=== PATIENT | female | born 1935 | race Caucasian/White ===

== ENCOUNTER 2016-10-10 15:54 | Inpatient (IN) | payer MEDICARE, MEDICAID ==
[~2016-10-10] VITALS: Ht 144.8 cm; Wt 41.2 kg
[~2016-10-10 15:54] MED LIST: CHOL10008 PO; ENAL20TA PO; FERR325C PO; FUR20 PO; HYDR-4003 PO; OMEP20CA11 PO; ONDA8TAB7 PO; POTA10CA42 PO; PROC-4 PO; SPIR50TA2 PO
[2016-10-10 15:59] VITALS: BP 116/84; PULSE 94; RESP 15; O2SAT 94
[2016-10-10] MEDS ORDERED: 0.9% Sodium Chloride 1,000 ML IV ONE ×2 (16:07→17:35)
--- NOTE | 2016-10-10 16:07 | ED.REPORT ---
HPI-General Illness Date of Service Oct 10, 2016 ED Provider: Hermes Rosen MD The patient is an 81 year old female with history of neuroendocrine carcinoma, hypertension, congestive heart failure, and anemia, who was brought to the emergency department by EMS after she had a near syncopal episode that occurred prior to arrival while she was getting a chemotherapy treatment. The episode was witness by her daughter, who states the patient suddenly went limp and was unresponsive. She was grunting and moaning during the episode but was unable to answer questions or respond in anyway. She remained in this state for about 30- 35 minutes. When medics arrived they found the patient to have a low blood pressure. She has had two other episodes since Monday. She has not had any seizure activity during these events. The patient has recently had a few choking episodes due to difficulty swallowing. She has not recently fallen or struck her head. She has not recently been sick. She has chronic abdominal pain from the cancer. She has not complained of shortness of breath, chest pain, vomiting, diarrhea, fever, chills, ear pain or cough. She has been drinking normally but does not eat much. Nursing Notes Stated Complaint: DECREASED LOC Chief Complaint: Neuro Symptoms/ Deficits Nursing Notes Reviewed: Yes Allergies: Coded Allergies: No Known Drug Allergies (Verified Allergy, Mild, 10/10/16) Scheduled Ascorbic Acid (Vitamin C) 1,000 Mg Tab.chew 1,000 MG PO DAILY Cholecalciferol (Vitamin D3) (Vitamin D3) 1,000 Unit Tab.chew 1,000 UNIT PO QAM Enalapril Maleate (Enalapril Maleate) 10 Mg Tablet 10 MG PO QAM Ferrous Sulfate (Iron) 325 Mg Capsule.er 325 MG PO DAILYWM Furosemide (Furosemide) 20 Mg Tab 20 MG PO QAM Potassium Chloride (Potassium Chloride) 10 Meq Capsule.er 10 MEQ PO DAILY TAKE WITH FOOD Spironolactone (Spironolactone) 50 Mg Tablet 50 MG PO BID Scheduled PRN Hydrocodone-Acetaminophen 5-325 mg (Hydrocodone-Acetaminophen 5-325 mg) 1 Each Tablet 0.5-1 TABLET PO TID PRN PRN For Pain Omeprazole (Omeprazole) 20 Mg Capsule.dr 20 MG PO DAILY PRN PRN For Dyspepsia or Heartburn Ondansetron ODT (Zofran ODT) 8 Mg Tablet 8 MG PO q8hrs prn PRN PRN For Nausea Prochlorperazine Maleate (Compazine) 10 Mg Tablet 0.5-1 TABLET PO AC PRN PRN For Nausea General Time Seen by MD: 16:05 Chief Complaint Other (decreased LOC) Hx Obtained From: Patient, Daughter, EMS Arrived By: Ambulance Sudden in Onset?: Yes Onset Occurred: 4 days ago Symptom Duration: Intermittent Severity: Current: No pain currently Severity: Maximum: No pain Recent Healthcare: No recent hospitalization, Recent doctor visit Similar Sx Previous: Yes Past Medical History Past Medical History CHF Hypertension Neuroendocrine carcinoma Anemia Family History Noncontributory Smoking History Never Smoker Social History Lives with her daughter Alcohol Use: Denies alcohol use Drug Use: Denies drug use Other Social History: Good social support, Local resident Ambulatory Status Independent Review of Systems Full Review of Systems Constitutional: Denies: Chills, Fever Ears / Nose / Throat: Denies: Nasal congestion, Sore throat Respiratory: Denies: Non-productive cough, Shortness of breath Cardiovascular: Denies: Chest pain GI: Reports: Abdominal pain (chronic), Anorexia, Dysphagia, Denies: Diarrhea, Vomiting Neurologic: Reports: Change LOC, Syncope, Denies: Seizure, Shaking Complete sys rev & neg: except as marked. Physical Exam Vital Signs Vital Signs Date Time Temp Pulse Resp B/P Pulse Ox O2 Delivery O2 Flow Rate FiO2 10/10/16 15:59 36.5 94 15 116/84 94 Room Air Initial VS: Reviewed Extremities: Vascular intact, Neuro intact Skin: Warm, Dry, No cyanosis Psychiatric: Mood/affect normal, Behavior normal, Normal thought content General/Constitutional: Awake, Alert Appearance / Presentation: Positive: Cachectic (and thin) Head / Eyes: Atraumatic, Normocephalic, PERRL, EOMI ENT: Atraumatic, Airway patent Mouth: Positive: Mucous membranes dry (slightly) Neck: Atraumatic, Supple, No swelling, Non-tender, No midline vertebral tend Respiratory / Chest: Atraumatic, Breath sounds NL, Breath sounds = bilat, No respiratory distress, No rales, No rhonchi, No wheezing, No retractions Cardiovascular: Regular rhythm, Heart sounds NL, No gallop, No murmurs, No rubs Heart Rate / Rhythm: Positive: Tachycardia Abdomen: Atraumatic, Soft, Non-tender, No guarding, No rebound, BS normoactive , No distention, No hernia, No palpable mass, No pulsatile mass Lower Extremity / Pelvis / MS: Neurologic intact, Vascular intact 2+ pitting edema to her bilateral lower extremities that extends up to her knees. Rectum / Perineum: Blood - occult heme -, No gross blood Superficial sacral ulcers present and sacral erythema. There is light brown stool present on rectal exam. Neurologic: Speech NL, No motor deficits, No sensory deficits Speech is fluent. 5/5 strength to both upper and lower extremities. Interpretation & Diagnostics Lab Results Interpretation Result Diagram: 10/10/16 1633 10/10/16 1633 Test 10/10/16 16:33 10/10/16 17:15 White Blood Count 10.4th/mm3 (3.8-10.1) Red Blood Count 3.26mil/mm3 (3.90-5.20) Hemoglobin 9.0g/dL (12.0-15.6) Hematocrit 29.5% (35.0-46.0) Mean Corpuscular Volume 90.5fL (81-100) Mean Corpuscular Hemoglobin 27.6pg (27.0-35.0) Mean Corpuscular Hemoglobin Concent 30.5% (32.0-37.0) Red Cell Distribution Width 18.2% (12.3-15.4) Platelet Count 333bil/L (150-400) Neutrophils (%) (Auto) 85.0% (40-74) Lymphocytes (%) (Auto) 7.1% (14-46) Monocytes (%) (Auto) 6.0% (4-12) Eosinophils (%) (Auto) 0.1% (0-5) Basophils (%) (Auto) 0.2% (0-3) Sodium Level 140mEq/L (134-144) Potassium Level 3.6mEq/L (3.5-5.2) Chloride Level 104mEq/L (97-108) Carbon Dioxide Level 18mmol/L (18-29) Blood Urea Nitrogen 23mg/dL (8-27) Creatinine 1.06mg/dL (0.57-1.00) Estimat Glomerular Filtration Rate 71mL/min (>59) Glucose Level 121mg/dL (60-99) Calcium Level 7.1mg/dL (8.5-10.1) Magnesium Level 1.3mg/dL (1.6-2.6) Total Bilirubin 0.3mg/dL (0.0-1.2) Aspartate Amino Transf (AST/SGOT) 21U/L (0-50) Alanine Aminotransferase (ALT/SGPT) 11U/L (0-32) Alkaline Phosphatase 154U/L (25-165) Total Protein 4.5g/dL (6.4-8.4) Albumin 1.6g/dL (3.4-5.0) Procalcitonin 0.08ng/mL (0.00-0.08) Urine Color Yellow (YELLOW) Urine Appearance Clear (CLEAR,HAZY) Urine pH 5.5 (5.0-8.0) Urine Specific [place] 1.010 (1.003-1.035) Urine Protein Negativemg/dL (NEG,TRACE) Urine Glucose (UA) Negativemg/dL (NEGATIVE) Urine Ketones Negativemg/dL (NEGATIVE) Urine Occult Blood Trace (NEGATIVE) Urine Nitrite Negative (NEGATIVE) Urine Bilirubin Negative (NEGATIVE) Urine Urobilinogen Normalmg/dL (NORMAL) Urine Leukocyte Esterase Negative (NEGATIVE) Urine RBC 0-2/hpf (0-2) Urine WBC 0-5/hpf (0-5) Urine Epithelial Cells Moderate/hpf (NONE-MOD) Urine Crystals Oxalic acid crystals (NONE Urine Bacteria Few/hpf (NONE-FEW) Urine Hyaline Casts 5/20/lpf (NONE) Urine Granular Casts None seen (NONE SEEN) Urine Waxy Casts None seen (NONE SEEN) Urine Red Blood Cell Casts None seen (NONE SEEN) Urine White Blood Cell Casts None seen (NONE SEEN) Urine Mucus Present (None Seen) Urine Trichomonas None seen (NONE SEEN) Urine Yeast None (NONE SEEN) Urinalysis Comment Starch Urine Culture Reflexed Not indicated ECG Interpretation ECG Interpretation: Sinus rhythm with a rate of 78 Anteroseptal Q waves present Time: 17:35 Interpreted by: ED physician X-Ray Chest Interpretation Chest Xray Interpretation: IMPRESSION: 1. New retrocardiac atelectasis, aspiration, or early pneumonia. 2. Bilateral shoulder rotator cuff arthropathy as before. Dictated by: Rc Salcido M.D. on 10/10/2016 at 16:33 Interpretation / Wet Read by: Interpret - Radiologist CT Head Interpretation IMPRESSION: No acute intracranial abnormality. Dictated by: Mary Charles M.D. on 10/10/2016 at 16:49 Study: Head CT no contrast Interpretation / Wet Read by: Interpret - Radiologist Re-Eval/Medical Decision Med Decision/Clinical Course The patient is an 81 year old female with history of neuroendocrine carcinoma, hypertension, congestive heart failure, and anemia, who was brought to the emergency department by EMS after she had a syncopal episode that occurred prior to arrival while she was getting a chemotherapy treatment. The episode was witness by her daughter, who states the patient suddenly went limp and was unresponsive. She was grunting and moaning during the episode but was unable to answer questions or respond in anyway. She remained in this state for about 30- 35 minutes. When medics arrived they found the patient to have a low blood pressure. She has had two other episodes since Monday. She has not had any seizure activity during these events. The patient has recently had a few choking episodes due to difficulty swallowing. She has not recently fallen or struck her head. She has not recently been sick. She has chronic abdominal pain from the cancer. She has not complained of shortness of breath, chest pain, vomiting, diarrhea, fever, chills, ear pain or cough. She has been drinking normally but does not eat much. Here in the emergency department the patient is cachectic and generally unwell- appearing though she is hemodynamically stable and afebrile. She has no active seizure like activity. She is requiring 4 L of supplemental oxygen to maintain saturation in the high 90s. Head CT demonstrates no acute intracranial process or mass lesion. Chest x-ray shows new retrocardiac atelectasis, aspiration, or early pneumonia. 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 No seizure events here in emergency department and I opted to observe as opposed to initiating empiric antiepileptic treatment. I suspect that the patient may have had an aspiration event related to her syncopal episodes as she is requiring supplemental oxygen and has chest x-ray suggestive of aspiration pneumonia. Therefore 2 sets of blood cultures were obtained and she was started on empiric broad-spectrum antibiotics. No evidence of cardiogenic etiology of syncope at this moment the patient remains in sinus rhythm on the monitor. Patient is volume depleted though history not suggestive of orthostatic cause. He is a vagal remains a possibility as well. Spoke with Dr. Costa. He feels that the patient should be on hospice. He would like a CT scan of her chest, abdomen, and pelvis to help with goals of planning for her care. She is not receiving chemo injections but octreotide injections. Also of care discussion was had with patient and family though at this time patient remains a full code. Further discussions will involve patient's oncologist as she clearly has fairly widespread malignancy. Patient was discussed with admitting hospitalist and transferred in stable condition for further workup and management. Source of Hx: Old records, EMS, Family Time of Eval: 17:29 Re-Evaluation/Progress Note: Discussed plan for admission with the patient and her daughter. All questions were addressed. Consultation #1: Referral / Consult Name: Beni Molina MD Consulted With: Ground Operations Superintendent Requested Call at: 17:34 Call Returned at: 17:45 Adhesion Tester: Agrees with eval, Agrees with plan Consultation #2: Referral / Consult Name: Rita Lucio DO Consulted With: Hospitalist Call Returned at: 19:19 Adhesion Tester: Will see patient, Agrees with eval, Agrees with plan, Accepts admit Counseled Regarding: Diagnosis, Lab results, Need for admission Discharge & Departure Primary Impression: Syncopal episodes Syncope type: unspecified Qualified Code: R55 - Syncope and collapse Additional Impressions: Pneumonia Pneumonia type: due to unspecified organism Laterality: unspecified laterality Lung location: unspecified part of lung Qualified Code: J18.9 - Pneumonia, unspecified organism Aspiration pneumonia Aspiration pneumonia type: unspecified Laterality: unspecified laterality Lung location: unspecified part of lung Qualified Code: J69.0 - Pneumonitis due to inhalation of food and vomit Hypoxia Neuroendocrine tumor Disposition: ADMITTED TO HOSPITAL Discharge Condition All VS Reviewed: Yes Condition: Stable Referrals: Pablo David MD (PCP) Crit Care Except Billable Proc Time Spent: 105-134 minutes Services Performed: Patient management by me, Time spent at bedside, Reviewing test results, Reviewing imaging, Discussing patient care, Documentation in record, Time with fam/surrogate Scribe Attestation Portions of this note were transcribed by Ban Salinas. I, Dr. Rosen personally performed the history, physical exam and medical decision-making; I reviewed and confirmed the accuracy of the information in the transcribed note. Signed by: Chuck Jaeger, 10/10/2016 at 1930. copies to: Pablo David MD, Beck O MD Oct 10, 2016 16:07 Ban Salinas Oct 10, 2016 16:41
--- NOTE | 2016-10-10 16:35 | DRSVH ---
PROCEDURE: X-RAY CHEST ONE VIEW, PORTABLE ([id number]) INDICATIONS: 81 year-old female with altered mental status. TECHNIQUE: One view of the chest was acquired. COMPARISON: [facility], CR, XR CHEST 1V PORTABLE, 08/29/2016, 9:37 AM. FINDINGS: Surgical changes and devices: None. Lungs and pleura: No pleural effusions or pneumothorax. There is new patchy retrocardiac opacity. R ight lung remains clear. Mediastinum: Mediastinal contours appear normal. Heart size is normal. There is aortic atheroscler osis. Bones and chest wall: No suspicious bony lesions. As before, there is bilateral superior humeral he ad migration with narrowed acromiohumeral intervals. Overlying soft tissues appear unremarkable. IMPRESSION: 1. New retrocardiac atelectasis, aspiration, or early pneumonia. 2. Bilateral shoulder rotator cuff arthropathy as before. Dictated by: Rc Salcido M.D. on 10/10/2016 at 16:33 Approved by: Rc Salcido M.D. on 10/10/2016 at 16:34
[2016-10-10 16:43] LABS: BASOPHILS % (AUTO) 0.2 % (0-3); EOSINOPHILS % (AUTO) 0.1 % (0-5); Mean Corpuscular Hemoglobin 27.6 pg (27.0-35.0); Mean Corpuscular Volume 90.5 fL (81-100); Platelet Count 333 bil/L (150-400)
--- NOTE | 2016-10-10 16:51 | DRSVH ---
PROCEDURE: CT BRAIN WITHOUT CONTRAST ([id number]) INDICATIONS: ams, seizure? TECHNIQUE: Noncontrast 4.5 mm thick angled axial sections acquired from the foramen magnum to the vertex, with c oronal reformats. COMPARISON: None. FINDINGS: Image quality: Excellent. CSF spaces: Basal cisterns are patent. No extra-axial fluid collections. The ventricles are symmet jyoti in size and shape. Brain: No intracranial bleeds or masses. There is cerebral volume loss for age, with resultant vent ricular and sulcal prominence. There are periventricular and deep white matter chronic small vessel ischemic changes. There is intracranial internal carotid artery atherosclerosis. Skull and face: Calvarium and visualized facial bones appear intact, without suspicious lesions. Sinuses: Sphenoid sinus retention cyst is present. Visualized sinuses and mastoids are otherwise cristy ar. IMPRESSION: No acute intracranial abnormality. Dictated by: Mary Charles M.D. on 10/10/2016 at 16:49 Approved by: Mary Charles M.D. on 10/10/2016 at 16:50
[2016-10-10 17:12] LABS: Magnesium 1.3 mg/dL (1.6-2.6)
[2016-10-10] MEDS ORDERED: Alum-Mag Hydrox-Simeth 30 mL Suspension PO PRN ×2 (17:35→21:15)
[2016-10-10] MEDS ORDERED: Ondansetron 2 mg/mL 2 mL Inj IVPUSH PRN ×2 (17:35→21:15)
[2016-10-10] MEDS ORDERED: Piperacillin-Tazo 3.375 Gm Inj 3.375 GM in Dextrose 5% Minibag Plus 50 ML IV ONE (17:40)
[2016-10-10] MEDS ORDERED: Vancomycin Dose per Pharmacist XX ONE (17:40)
[2016-10-10] MEDS ORDERED: Vancomycin 1 Gm/200 mL NS Premix IV ONE (17:45)
[2016-10-10] MEDS ORDERED: Magnesium Chloride SR 64 mg ER24 Tablet PO ONE (17:45)
[2016-10-10] MEDS ORDERED: ASCO100089 PO (17:53)
[2016-10-10] MEDS ORDERED: ENAL10TA PO (17:53)
[2016-10-10 18:24] LABS: APPEARANCE,URINE CLEAR (CLEAR,HAZY); COLOR,URINE YELLOW (YELLOW); OCCULT BLOOD,URINE TRACE (NEGATIVE); PH,URINE 5.5 (5.0-8.0); UROBILINOGEN,URINE NORMAL (NORMAL)
[2016-10-10] MEDS ORDERED: Magnesium Sulf 2 Gm/50mL Water 1 GM in IV Premix 1 EACH IV ONE (18:40)
[2016-10-10 20:20] VITALS: BP 111/67; PULSE 72; RESP 19; O2SAT 98
--- NOTE | 2016-10-10 20:36 | PCM.HPMED ---
Subjective Date of Service Oct 10, 2016 Primary Provider: Admitting Physician: Rita Lucio DO Primary Care Physician: Pablo David MD Attending Physician: Rita Lucio DO Admit Status: From the Emergency Department Chief Complaint: Syncopal episode; recurrent History of Present Illness: Ms. Cabrera is a pleasant 81 year old cachectic female with an unfortunate history of metastatic well-differentiated neuroendocrine carcinoma and resultant anasarca that presented to [facility] from [facility] following a syncopal and unresponsive episode that followed an injection of octreotide, that lasted approximately 35 minutes according to her daughter that was present throughout the event. Ms. Leiva was admitted for evaluation for her syncopal episodes. Hospital day one. Ms. Leiva and daughter confirm that there have been three syncopal events over the recent 4 days, first occurring Monday, 10/07, following lab draw, lasting approximately 15 minutes, and occurred while the patient was at rest braced with her walker. The second episode occurred Monday, 10/08, and occurred just as the patient was assisted into a seated position into a vehicle , lasting apporx 15 minutes. During these two episodes, the patient slumped over , became unresponsive, and cannot recall details of these events. The third episode occurred day of admission, 10/10, and occurred just as the patient completed octreotide injections at the [facility]. She, again, slumped over, became unresponsive, and this episode lasted approx 35 minutes. It is reported that staff at the [facility] were unable to obtain adequate BP readings. Ms. Cabrera is followed closely by Dr. 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 She states she is much improved in comfort following this procedure. She has also continued and has been compliant with her diuretics. Patient denies any history of seizures, CVA, cardiac conditions including MT and dysrhythmias, history of similar sx, pulmonary conditions, or any existing neurological disorders. Daughter and patient state that they have not considered much thought to goals of care and responses to proceeding with CPR vs DNR/DNI. Chart review indicates that patient does have history of CAD, CHF, and RA not on systemic therapies. No echocardiogram available in [facility]. She admits to chills, decreased appetite, nausea, discomfort with diffuse body swelling, fatigue. weakness, diarrhea x1 month; she denies any cardiac chest pain, shortness of breath, dizziness, vomiting, dysuria, hematuria, constipation , neck pain, abdominal pain. She admits that she does not mobilize much at home , and largely stays confined to a seated position enjoying television programming. She utilizes a walker at baseline, and requires assistance in transfers and activities. In the ED, T36.5, P94, R15, BP 116/84, 94% room air; Initial labs revealed WBC 10.4 with 85 neut, Hb 9.0, Hct 29.5; UA negative for LE, nitrites, and few bacteria. Albumin 1.6, Mg 1.3, LA 4.1, Cr 1.06. Baseline Cr 0.65- approx 1.0, most recently 0.97 10/07. Blood cultures were obtained. Mg replacement provided. Abx given inlcuded vanco and zosyn; 1L NS given. Patient was transferred to [facility] in stable condition, with daughter present. Review of Systems: Complete ROS obtained; pertinent positives and negatives as noted in HPI. Allergies Coded Allergies: No Known Drug Allergies (Verified Allergy, Mild, 10/10/16) Home Medications From ED documentation Scheduled Ascorbic Acid (Vitamin C) 1,000 Mg Tab.chew 1,000 MG PO DAILY Cholecalciferol (Vitamin D3) (Vitamin D3) 1,000 Unit Tab.chew 1,000 UNIT PO QAM Enalapril Maleate (Enalapril Maleate) 10 Mg Tablet 10 MG PO QAM Ferrous Sulfate (Iron) 325 Mg Capsule.er 325 MG PO DAILYWM Furosemide (Furosemide) 20 Mg Tab 20 MG PO QAM Potassium Chloride (Potassium Chloride) 10 Meq Capsule.er 10 MEQ PO DAILY TAKE WITH FOOD Spironolactone (Spironolactone) 50 Mg Tablet 50 MG PO BID Scheduled PRN Hydrocodone-Acetaminophen 5-325 mg (Hydrocodone-Acetaminophen 5-325 mg) 1 Each Tablet 0.5-1 TABLET PO TID PRN PRN For Pain Omeprazole (Omeprazole) 20 Mg Capsule.dr 20 MG PO DAILY PRN PRN For Dyspepsia or Heartburn Ondansetron ODT (Zofran ODT) 8 Mg Tablet 8 MG PO q8hrs prn PRN PRN For Nausea Prochlorperazine Maleate (Compazine) 10 Mg Tablet 0.5-1 TABLET PO AC PRN PRN For Nausea PMH CAD CHF RA Osteoporosis Neuroendocrine carcinoma with mets Surgical History EGD - 04/2015, 03/2016 Colonoscopy- 04/2015, 03/2016 Family History Denies any history of syncopal episodes, similar symptoms, or neurological disorders; Children also reported to be negative for these conditions as well Social History 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; 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 Hx Alcohol Use: No Hx Substance Use: No Hx Tobacco Use: No Smoking Status: Never Smoker Living Arrangement: with Family (daughter) Exam Vital Signs Vital Sign - Last Date Time Temp Pulse Resp B/P Pulse Ox O2 Delivery O2 Flow Rate FiO2 10/10/16 15:59 36.5 94 15 116/84 94 Room Air Exam General: AAOx3, pleasant; frail appearing woman resting in bed curled up HEENT: Atraumatic; temporal wasting; sclera anicteric; EOMI; mucus membranes moist Neck: Full ROM without pain; no palpable nodes Cardiac: Regular rate and rhythm at time of exam, approx 76bpm; no appreciable murmurs Respiratory: Poor inspiratory effort; decreased sounds B/L bases without evidence coarse sounds; no wheeze Abdomen: Soft, nontender, mild anasarca of abd Extremities: Moderate pitting edema of dorsum B/L > proximal LE; no areas skin breakdown evident; no erythema Pulses: Radial equal and bilateral; dorsalis pedis and posterior tibialis difficult to palpate secondary to moderate pitting edema Skin: Warm and dry Neuro: CNII-XII grossly intact; speech without slur; facial expressions symmetric Psych: Appropriate responses to questioning; appears depressed, fatigued; notable avoidance of questioning about code status Lab and Diagnostics Result Diagram: 10/10/16 1633 10/10/16 1633 Assessment & Plan Ms. Cabrera is a pleasant 81 year old cachectic female with an unfortunate history of metastatic well-differentiated neuroendocrine carcinoma and resultant anasarca that presented [facility] a syncopal and unresponsive episode that followed an injection of octreotide that lasted approximately 35 minutes according to her daughter that was present throughout the event. Ms. Leiva was admitted for evaluation for her syncopal episodes. Hospital day one. Syncope, acute, present on admission. Under evaluation - Patient and daughter report 3 episodes occurring different days, follwoing activity, with no previous history - Denies any history of similar or neurological conditions, including seizures; denies h/o cardiac arrhythmias - DDx: Dysrhythmias, vasovagal, electrolyte abnormality, thyroid dysfunction, infection, seizure disorder, CA mets, drugs/Rx, - No recent changes in medications - Recent shift in fluids with recent paracentesis 09/29/2016 - UA negative; WBC 10.4; PCT pending - Received vanco and zosyn in ED; currently appears uninfected, but may not mount appropriate fevers/white count - AM labs + PCT + thyroid function + Mg/PO4 - Tele - Continue zosyn at this time for concerns of aspiration; MRSA swab to eval for status - Orthostatic vitals Elevated lactic acid, likely acute, present on admission. Monitored - On admit: LA 4.1 - Repeat has been ordered, awaiting draw - Repeat q4h until normalized Acute kidney injury, present on admission. Monitored - On admit: Cr 1.06; baseline 0.65-0.97 - Likely secondary to dehydration; patient reports poor po intake; pt also received vanco and zosyn in ED - Holding ACEi, diuretics at time of admission, reassess in am - Home meds: Enalapril 10mg qam, Lasix 20mg qam, spironolactone 50mg BID - NS 60 - AM labs Suspected CXR abnormality, chronicity unknown, present on admission. 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 Ongoing - Patient reports minimal to zero appetite and weight loss with associated fatigue - Dietary consultation Anasarca, chronic. Presumed stable - Patient and daughter report that swelling at time of admission is improved compared to previous days - Likely secondary to low albumin levels; consider transfusion of albumin for fluid mobility and furosemide effectiveness - Dietary improvement Normocytic, normochromic anemia, likely chronic. Presumed stable - On admit: Hb 9.0, Hct 29.5 - Likely secondary to advanced age, h/o carcinoma - Monitor Hypomagnesemia, likely acute, present on admission. Under therapy - On admit: Mg 1.3 - Replacement ordered by ED - AM labs; replete prn Generalized weakness and failure to thrive, chronic. 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 Ongoing - Followed by Dr. Costa of [facility] - Pt was admitted from [facility] to ED for eval of syncope - Consultation order placed for continued follow up - There was discussion of obtaining additional scans, such as CT A/P, to evaluate any potential new masses to assist in determining goals of care, this has NOT YET been placed - Pt creatinine was slightly elevated; no contrast at this time - Will gently hydrate overnight, re-assess in am Goals of care, ongoing - Patient and family state that they have not considered answers to questionings about code status and goals - Chart review indicates that these scenarios have been presented by other providers - POLST briefly explained and provided to patient and daughter to review - Patient has decided on FULL CODE status; risks of rib fracture, bleeding, lung perforation explained and accepted; acknowledged that may not be successful - Patient and family want to 'try' - Palliative care consultation for continued discussion and goals - PRN: Bowel/fever/pain/antiemetics - IVF: NS 60 - DVT: Hep q8 - GI: Not indicated - Code: FULL CODE Patient status: Due to severity of presenting symptoms, expected course of care , and risk of adverse events, anticipated LOS > 2 midnights; admitted as INPT Pain Evaluation: Adequate Pain Control GI Prophylaxis: Not indicated VTE Prophylaxis: Sub-Q Heparin (Unfractionated) Resuscitation Status: CPR: Attempt Resuscitation Attending Statement The patient was seen and examined together with house staff on 10/10/16 and I agree with the history, exam and plan as outlined in the note above. Gavi Mera DO Oct 10, 2016 20:36 Rita Lucio DO Oct 11, 2016 03:39
[2016-10-10 20:51] VITALS: PULSE 73
[2016-10-10] MEDS ORDERED: Polyethylene Glycol (PEG) 17 Gm Powder PO PRN (21:15)
[2016-10-10] MEDS: 0.9% Sodium Chloride 1,000 ML IV SCH (22:45)
--- NOTE | 2016-10-10 23:05 | NUR ---
Admit Patient arrived to floor at 2019 from ED. Patient A&OX3. Peripheral IV intact. Vitals stable. P500 bed. Daughter at bedside. Patient on 3L O2 at 95%. Wearing brief. No complaints of pain, N/V, or dizzyness.
[2016-10-11] VITALS (7 sets, daily range): BP systolic 96–119; BP diastolic 60–70; PULSE 53–75; RESP 16–18; O2SAT 92–96
[2016-10-11] MEDS: Heparin 5,000 Unit/mL Inj SUBQ SCH ×3 (00:35→17:47)
[2016-10-11] MEDS: Piperacillin-Tazo 3.375 Gm Inj 3.375 GM in Dextrose 5% Minibag Plus 50 ML IV SCH ×3 (05:02→21:26)
--- NOTE | 2016-10-11 05:40 | NUR ---
High High catheter placed at 2330 per physician orders. Patient is unstable on feet and has considerable skin breakdown on buttock and rico area. Patient wearing brief. 2L O2 at 96%. Attempted to titrate patient off of O2 but when Oxygen was removed, the patient's O2 saturation dropped down to 88%. Patient A&Ox3. Vitals stable. Bilateral lower extremity edema.
[2016-10-11 06:48] LABS: BASOPHILS % (AUTO) 0.2 % (0-3); EOSINOPHILS % (AUTO) 0.2 % (0-5); MONOCYTES % (AUTO) 7.5 % (4-12); Mean Corpuscular Volume 90.6 fL (81-100); Platelet Count 315 bil/L (150-400)
[2016-10-11 07:15] LABS: Magnesium 1.9 mg/dL (1.6-2.6)
--- NOTE | 2016-10-11 08:47 | DRSVH ---
PROCEDURE: X-RAY CHEST ONE VIEW, PORTABLE ([id number]) INDICATIONS: possible asp PNA TECHNIQUE: One view of the chest was acquired. COMPARISON: [facility], CR, XR CHEST 1V PORTABLE, 08/29/2016, 9:37 AM. [facility], CR, XR CHEST 1VW (PORTABLE), 10/10/2016, 16:16. FINDINGS: Surgical changes and devices: None. Lungs and pleura: The small bilateral effusions. Right basilar opacity compatible with consolidation or atelectasis. No pneumothorax. Mediastinum: Mediastinal contours appear normal. Heart size is normal. Bones and chest wall: No suspicious bony lesions. Overlying soft tissues appear unremarkable. IMPRESSION: Right basilar pneumonia or atelectasis. Small bibasilar pleural effusions. Dictated by: Anabelle Schultz M.D. on 10/11/2016 at 8:45 Approved by: Anabelle Schultz M.D. on 10/11/2016 at 8:46
--- NOTE | 2016-10-11 09:14 | PCM.CONPAL ---
Date of Service Oct 11, 2016 Date of Hospital Admission: Oct 10, 2016 at 18:21 Date of Palliative Consult: Oct 11, 2016 Requesting Provider: Gavi Mera DO Reason Palliative Care Consult: Goals of Care Discussion Reason for Consultation Palliative Care received order from Dr Abraham Mera 10/11/16 to assist with goals of care. Patient is an 81 year old cachectic woman with metastatic neuroendocrine carcinoma and resultant anasarca. [facility] a syncopal and unresponsive episode that followed an injection of octreotide. Patient lives with her daughter. Janis Garrido (daughter) [phone] Hospital Unit @time of consult: Orthopedic/Surgical Care (room 1031) Palliative Care Recommendation Assessment: This is a very frail, cachectic lady with progression of her metastatic neuroendocrine cancer. If she had a cardiac arrest, her ribs would be fractured in the process of the procedure and she would not survive, because people with end stage cancer who undergo resuscitation do not recover after the procedure, they . Palliative Care will advise the pt and family that chest compressions and/or defibrillation would not bring her back to life and should not be attempted. See Plan and Prognosis statements below. Summary of palliative recommendations: Symptom management (Pain/other): currently managed by Attending [facility] Team. Dr. Costa said he asked Attending to set up Abdominal CT for tomorrow, 10/12. Family Conference Team Meeting (FCTM): Palliative Care met today 10/11 with pt and daughter to address their goals and code status per request of Attending Team. Fortuitously, Dr. Costa arrived to join our conversation. Drs. Guzman and Igor counseled pt that she needs to consider hospice. Dr. Costa would like her to have an abdominal CT to see if liver mets have grown and are causing her anasarca or if a there is possibly a blood clot in the liver circulation that is promoting increased anasarca. He feels the CT might give him information about whether to continue trying the octreotide to help pt's anasarca. Today, after many questions, pt and family agree to DNR/DNI code status and agree to consider hospice at home. They have had a hospice intro visit at their home and were undecided at that time, but happy to get information. Pall Care Team has placed a call to Hospice to let them know that the family may be more accepting after today's discussion with Dr. Costa and [facility] Care Team. Prognosis: After examining patient today and reviewing her records, I think she has 2 months or less to live. She is eligible for hospice medicare benefit if she wishes to elect this option. Dr. Costa also believes she is eligible for hospice. Oncologist Dr. Costa's opinion (09/28/16 office visit note): He has been treating her anasarca with lasix, spironolactone and octreotide injections at his office. Although very small-framed, her weight was up to 95 lbs on 10/08/16, (her usual weight is 80lbs). Dr. Costa states she is not a candidate for chemotherapy, and he worries that further diuresis is likely to worsen her renal function. He has recommended hospice to patient and her daughter on . At that time, pt was not ready to accept advise. However, as of 10/11 conversation detailed above, the pt and family are now more accepting of hospice and pt has changed her code status. DPOA/Advanced Directives/POLST: 1. Code status currently is FULL CODE--changed to DNR/DNI after counseling pt and family today, 10/11. 2. POLST conversation deferred today 10/11 as family is overwhelmed by prognosis and pt is "feeling scared" Family/emotional support: excellent support from dtr Janis and Janis's significant other. Janis and her mother have always lived together. Spiritual support: pt said she would appreciate hospital chief data officer visits. [facility] Care Team contacted [employer] and asked for their assistance. Pt expresses fears of leaving her family behind, leaving her two pet dogs behind ( when she dies), and some fears of pain (which has not been a big issue so far in her disease progression). Patient Goals: 1. Pt wants to go home as soon as possible. She not sure if she wants to wait to get the abdominal CT, but Dr. Costa has encouraged this. She is still trying to make up her mind. Problems: Resuscitation Status Resuscitation Status: CPR: Attempt Resuscitation . Advanced Care Planning Address: Code status change, Comfort care Pt History History of Present Illness Ms. Cabrera is a pleasant 81 year old cachectic female with an unfortunate history of metastatic well-differentiated neuroendocrine carcinoma and resultant anasarca that presented to [facility] from [facility] following a syncopal and unresponsive episode that followed an injection of octreotide, that lasted approximately 35 minutes according to her daughter that was present throughout the event. Ms. Leiva was admitted on 10/10 for evaluation for her syncopal episodes. Ms. Leiva and daughter confirm that there have been three syncopal events over the recent 4 days, first occurring Monday, 10/07, following lab draw, lasting approximately 15 minutes, and occurred while the patient was at rest braced with her walker. The second episode occurred Monday, 10/08, and occurred just as the patient was assisted into a seated position into a vehicle , lasting apporx 15 minutes. During these two episodes, the patient slumped over , became unresponsive, and cannot recall details of these events. The third episode occurred day of admission, 10/10, and occurred just as the patient completed octreotide injections at the [facility]. She, again, slumped over, became unresponsive, and this episode lasted approx 35 minutes. It is reported that staff at the [facility] were unable to obtain adequate BP readings. Ms. Cabrera is followed closely by Dr. 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 She states she has been more comfortable since that procedure. She has also continued and has been compliant with her diuretics. Patient denies any history of seizures, CVA, cardiac conditions including WI and dysrhythmias, history of similar sx, pulmonary conditions, or any existing neurological disorders. Daughter and patient state that they have not considered much thought to goals of care and responses to proceeding with CPR vs DNR/DNI. Chart review indicates that patient does have history of CAD, CHF, and RA not on systemic therapies. No echocardiogram available in [facility]. Review of systems: Positive for: chills, decreased appetite, nausea, discomfort with diffuse body swelling, fatigue. weakness, diarrhea x1 month; negative for: cardiac chest pain, shortness of breath, dizziness, vomiting, dysuria, hematuria , constipation, neck pain, abdominal pain. Baseline: she doesn't move around much at home, and usually sits watching TV. She utilizes a walker, and needs assistance in transfers and activities. 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 Lives with daughter , Social History Living Situation: Patient lives with her daughter. Allergy Allergies Reviewed: Yes Medications Current Medications: Current Medications Al Hydrox/Mg Hydrox/Simethicone 30 ml Q6 PRN PO; Start 10/10/16 at 17:35; Stop 10/10/16 at 21:22; Status DC Ondansetron HCl Dose range: 4 mg to 8 mg Q4H PRN IVPUSH; Start 10/10/16 at 17: 35; Stop 10/10/16 at 21:22; Status DC Acetaminophen 975 mg Q6H PRN PO; Start 10/10/16 at 17:35; Stop 10/10/16 at 21: 21; Status DC Heparin Sodium (Porcine) 5,000 unit Q8 SUBQ Last administered on 10/11/16t 08:30 ; Admin Dose 5,000 UNIT; Start 10/11/16 at 00:30 Al Hydrox/Mg Hydrox/Simethicone 30 ml Q6H PRN PO; Start 10/10/16 at 21:15 Ondansetron HCl 4 to 8 mg Q4H PRN IVPUSH; Start 10/10/16 at 21:15 Senna 17.2 mg BID PRN PO; Start 10/10/16 at 21:15 Polyethylene Glycol 17 gm DAILY PRN PO; Start 10/10/16 at 21:15 Acetaminophen 650 mg 650 mg Q4H PRN PO; Start 10/10/16 at 21:15 Sodium Chloride 1,000 ml @ 60 mls/hr [id number] IV Last administered on 10/10/16 22:45; Admin Dose 60 MLS/HR; Start 10/10/16 at 21:40 Piperacillin Sod/ Tazobactam Sod/ Dextrose/Water 50 ml @ 12.5 mls/hr Q8H IV Last administered on 10/11/16t 05:02; Admin Dose 12.5 MLS/HR; Start 10/11/16 at 05:00 Scheduled Ascorbic Acid (Vitamin C) 1,000 Mg Tab.chew 1,000 MG PO DAILY Cholecalciferol (Vitamin D3) (Vitamin D3) 1,000 Unit Tab.chew 1,000 UNIT PO QAM Enalapril Maleate (Enalapril Maleate) 10 Mg Tablet 10 MG PO QAM Ferrous Sulfate (Iron) 325 Mg Capsule.er 325 MG PO DAILYWM Furosemide (Furosemide) 20 Mg Tab 20 MG PO QAM Potassium Chloride (Potassium Chloride) 10 Meq Capsule.er 10 MEQ PO DAILY TAKE WITH FOOD Spironolactone (Spironolactone) 50 Mg Tablet 50 MG PO BID Scheduled PRN Hydrocodone-Acetaminophen 5-325 mg (Hydrocodone-Acetaminophen 5-325 mg) 1 Each Tablet 0.5-1 TABLET PO TID PRN PRN For Pain Omeprazole (Omeprazole) 20 Mg Capsule.dr 20 MG PO DAILY PRN PRN For Dyspepsia or Heartburn Ondansetron ODT (Zofran ODT) 8 Mg Tablet 8 MG PO q8hrs prn PRN PRN For Nausea Prochlorperazine Maleate (Compazine) 10 Mg Tablet 0.5-1 TABLET PO AC PRN PRN For Nausea Objective Findings Exam Vital Sign - Last Date Time Temp Pulse Resp B/P Pulse Ox O2 Delivery O2 Flow Rate FiO2 10/11/16 06:24 36.4 74 18 108/68 96 Nasal Cannula 2.00 Intake and Output 10/10/16 10/10/16 10/11/16 Cumulative From/Thru 15:00 23:00 07:00 10/10/16 15:59 - 10/11/16 06:24 Intake Total 818 ml 818 ml Output Total 350 ml 350 ml Balance 468 ml 468 ml Intake Oral 400 ml 400 ml IV Total 418 ml 418 ml Output Urine Total 350 ml 350 ml # Bowel Movements 0 0 General: Alert/Oriented x3, Person, Place, Time, Situation, No acute distress, Other (cachectic frail appearance) HEENT: Atraumatic, PERRLA, EOMI, Scleral Anicteric, Mucous Membr Moist/[place] Heart: Systolic Murmur (III/IV holosystolic) Lungs: Clear to Percussion, Diminished, Other (frail chest wall, prominent bone structure) Abdomen: Bowel Tones x4, Soft, Non Tender, Distended (slight distension) Neuro: Arousable, Follows Commands, Spontaneous Eye Opening, Speech (intact, no slurring), Weakness (generalized), Other (left eye deviates out laterally ( baseline)) Extremities: Warm, Generalized Edema (pitting in lower extremities and mild edema in abdomen) Skin: Other (no skin breakdown or rashes noted on extremities. RN reports breakdown on buttocks and rico area.) Lab/Diagnostics Item Value Date Time Albumin 1.8 g/dL L 10/11/16629 Total Protein 4.2 g/dL L 10/11/16629 Lactic Acid Level 1.1 mmol/L 10/11/16629 Potassium Level 3.3 mEq/L L 10/11/16629 Creatinine 0.86 mg/dL 10/11/16629 Blood Urea Nitrogen 20 mg/dL 10/11/16629 Time spent Total time 70 minutes; >50% face to face with patient and/or family, providing counselling regarding plans and recommendations, and in care coordination with his/her medical teams. I also spent an additional 60 minutes counseling for advanced care planning with the patient/the patients family/the surrogate decision maker. copies to: Beni Molina MD [facility] CenterSarita MD Oct 11, 2016 09:14
--- NOTE | 2016-10-11 10:33 | NUR ---
Evaluation completed. Please go to "Notes" then click on "Assessments and Notes" (bottom left corner of screen). Then select appropriate discipline tab on top of screen.
--- NOTE | 2016-10-11 11:17 | NUR ---
Palliative Care Palliative Care received order from Dr Abraham Mera 10/11/16 to assist with goals of care. Patient is an 81 year old cachectic woman with metastatic neuroendocrine carcinoma and resultant anasarca. [facility] a syncopal and unresponsive episode that followed an injection of octreotide. Patient lives with her daughter. Janis Garrido (daughter) [phone] Palliative Care to follow. Selina Moreno
--- NOTE | 2016-10-11 13:52 | NUR ---
Evaluation completed. Please go to "Notes" then click on "Assessments and Notes" (bottom left corner of screen). Then select appropriate discipline tab on top of screen.
--- NOTE | 2016-10-11 14:10 | NUR ---
Mobility Pt has denied any pain today, A/O, calm and coop with care. Family here able to meet with Palliative Care. Pt had swallow eval today, but has refused her meals so far. Pt also had PT eval today. Patient required mod-max assist to transfer to edge of bed. Patient stood with FWW and min assist but was unable to fully stand upright. Pt denied any dizziness with all mobility. Family at bedside. Cont to monitor.
--- NOTE | 2016-10-11 14:22 | NUR ---
Palliative care note D/A: Met with pt at length today, as well as her dtr Janis and Janis's male partner (name unknown) and Dr. Guzman. Dr. Costa also part of the discussion and had a very heart to heart with pt regarding her prognosis. Pt and dtr were able to hear and understand that there is no further treatments for pt. He is recommending a CT abdominal and pt is considering it. Pt and her dtr already had a [facility] visit and were awaiting some communication from [facility]. Pt and family had not understood that there was very little more to be done, hence their code decisions. Dr. Costa notes that if cancer is stable, he might consider another injection or two of Octreotide. Pt voices a strong desire to go home and go home as soon as possible. Msg left for HNW (Joyce) to inquire about info visit and current plan. Pt is cared for by her dtr Janis. They have lived together Janis's entire life. 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 Pt had 6 children and all the other children have pre- Janis. Pt indicates that she lost two children separately at aged 6 months, both from cardiac conditions. (They had holes in their hearts.) Pt's face lights up when she discusses her dogs. She has a young 7 mo old named Ramo who is 70 pds and part lab/aki/border collie. She also has an older lab/zee female who weighs 120 lbs who is named Rosenda Reynoso. Dr. Guzman talks to pt about code status and family/pt are happy to change to DNR/DNI after discussion with Dr. Costa. Joyce returns call to indicate that [facility]W was awaiting results of CT scan. Joyce to call this worker back. Family is desirous of hospital bed. Have discussed further the benefits of hospice, including equipment. P: Palliative care to follow. Olya Soni [facility], [facility]
[2016-10-11] MEDS: 0.9% Sodium Chloride 1,000 ML IV SCH (14:24)
--- NOTE | 2016-10-11 15:34 | NUR ---
Social Work-initial assessment: Data: EMR reviewed. Pt is a 81 y/o female who was admitted for syncope per H&P. Pt's insurance is Medicare and [facility] Supplemental. Pt PCP is Pablo David MD. Pt does not have detention care insurance or VA benefits. Pt has no history of HH or SNF. SW met with Pt and explained role. Pt resides at home with her Daughter Janis in [place]. Pt does not drive or use any DME. SW discussed DPOA/advanced directive and patient declined further information. SW placed a call to pt's daughter Lacey confirmed that she provides 24/7 care to pt at home. Pt's [facility] case sealer is Leti Milan, updated clinicals faxed. Pt's daughter is MARY caregiver. PT has seen Pt and cleared Pt for home with 24/7 care and HH. Palliative care is involved at this point in time. Pt may go on hospice. SW to follow-up regarding HH once further information is known. Pt's daughter to provide transport at time of discharge. SW provided phone number and plan on white board in room. SW will continue to follow. Assessment:Pt who is independent at baseline. Plan:Pt to discharge home when medically stable via POV. Palliative care is involved at this point in time. Pt to return home with either hospice or HH. SW will continue to follow. MU Hagen
--- NOTE | 2016-10-11 16:18 | NUR ---
NUTRITION ASSESSMENT: ASSESS: 81 YO female admitted for recurrent syncopal events. Palliative care following and pt has changed her code status today and is planning to discharge soon with either home health or hospice per notes. Pt with minimal appetite and wt loss per notes. PMHx: CAD, CHF, RA, osteoporosis, neuroendocrine carcinoma with mets. LABS: Reviewed. k+ 3.3, Ca 7.1, Alb 1.8 MEDS: Reviewed. GI: No BM reported. CURRENT WT: 41.2 kg. UBW: 38.6 kg (85 lbs) DIET: Dysphagia Mechanical, [place] thick. PO intake 0-25% of meals. EST. NEEDS: 9635-8570 kcals (30-35 kcals/kg UBW), 45-60 g protein (1.2-1.5 g/kg UBW) NUTRITION DIAGNOSIS: 1.) Inadequate oral intake related to decreased appetite as evidenced by po intake of 0-25% of meals. NUTRITION INTERVENTION: 1.) Will add NT ensure to all trays to encourage increased po intake. MONITOR / EVAL: PO intake, labs, nutritional status. Follow per high nutritional risk guidelines.
--- NOTE | 2016-10-11 18:41 | CCS NOTE ---
[facility] [address] [place] [id number] MEDICAL ONCOLOGY OFFICE NOTE PATIENT: KARIN FERNANDEZ : 1935 MR#: [id number] DATE: 10/10/2016 JOB ID: [id number] DATE: 10/11/2016 HISTORY OF PRESENT ILLNESS: The patient is an 81-year-old, frail lady diagnosed with a well-differentiated neuroendocrine/carcinoid tumor, likely originating from small bowel in the mesenteric area with widespread liver metastases on presentation. She is too frail to receive chemotherapy and was diagnosed in late June, early July 2016, and has been started on octreotide injection since the octreotide scan was positive. She received a 2nd higher dose octreotide at 40 mg yesterday at our office. At her last visit in our clinic on September 28, I had recommended also an informational visit with hospice due to the patient's overall decline in functional status and extensive fluid retention and anasarca, which I think either are due to tumor progression versus a malnutrition from hypoalbuminemia or a visceral thrombus. She was supposed to get a CAT scan but that was canceled in my absence last week. She was seen by our nurse practitioner yesterday in the clinic, and she was due for the octreotide injection, but after the shot, had an episode of being unresponsive. As I was in the hospital, my partner saw her in the treatment area and thought that she might have had a partial seizure. The patient was sent to the ER. I have been in communication, both with the ER physician, as well as with the hospitalist team since then, clarifying some of the issues. I did not believe that the patient has had a seizure activity. CT of the brain without contrast was negative expectedly. Chest x-ray had showed a slight infiltrate, possible aspiration. LABORATORIES: Show a white count 8.6, hemoglobin 8.9, platelets 315. Chemistry shows a potassium of 3.3, normal electrolytes. Otherwise albumin is down to 1.8. TSH and free T4 are normal. Procalcitonin is normal. Her lactic acid was elevated, but on the repeat test just a few hours later, was normal. I saw the patient today, with the presence of her daughter and her partner, as well as Dr. Guzman of palliative care. She was awake and in her usual state of function as seen previously in the clinic. Her chromogranin A of October 07 was down to 39 from previously 107. 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 Unfortunately, her status is deteriorating clinically in form of anasarca, hypoalbuminemia, and a couple of episodes of what appears to have been syncopes. So far, the workup during the hospitalization has not revealed any obvious infection. Urinalysis was negative. EKG was apparently without any cardiac arrhythmias. I have spoken both with the ER physician and the admitting hospitalist. In summary, I believe that the patient should be having a CT scan of chest, abdomen, and pelvis to verify whether her disease is progressing on octreotide or has stabilized. I affirmed that if she has evidence of progression, then I would strongly recommend that she transition to hospice. However, if her disease is stable, then we need to debate whether she continues octreotide or not. The CT scan should also help to rule out the visceral thrombus in the differential diagnosis as sometimes portal vein thrombosis can present with subacute worsening of anasarca and ascites. We did arrange for her to get a paracentesis that was done on September 29 with drainage of 3300 cc of fluid which did help her feel somewhat better. I had already requested an informational hospice visit when I saw her a couple of weeks ago which has taken place at home and the patient somehow appears to have misunderstood and said that she is definitely not interested in hospice, and when I inquired today, it turns out that she thought she might have to go to a long-term and her main goal is to remain home. We clarified that issue, that the hospice position does not mean that she will have to go to a long-term. I took the liberty and ordered the CAT scan myself of the chest, abdomen, and pelvis to be performed either later today or tomorrow with contrast. I spoke with Radiology regarding their concern of creatinine issues before, but currently her creatinine clearance is acceptable. In addition, we talked about the resuscitation status, and I recommended that she be DNR, DNI, given her overall outlook and functional status, and the family is all agreeable including the patient. Approximately 1 hour and 5 minutes were spent in counseling and coordination of care.
--- NOTE | 2016-10-11 19:15 | PCM.PNMED ---
Subjective Date of Service Oct 11, 2016 Subjective Pt has no acute complaints. She denies pain or difficulties breathing. Appetite is very small, but she still has some thirst. Met with family, oncology and palliative care today to discuss further planning, she can not recall entire discussion to me, states there is one more CT to do. Exam Vital Signs Vital Sign - Last Date Time Temp Pulse Resp B/P Pulse Ox O2 Delivery O2 Flow Rate FiO2 10/11/16 16:40 Supplement Oxygen 10/11/16 16:02 36.4 68 16 119/68 96 2.00 Intake and Output 10/10/16 10/10/16 10/11/16 Cumulative From/Thru 15:00 23:00 07:00 10/10/16 15:59 - 10/11/16 06:24 Intake Total 818 ml 818 ml Output Total 350 ml 350 ml Balance 468 ml 468 ml Intake Oral 400 ml 400 ml IV Total 418 ml 418 ml Output Urine Total 350 ml 350 ml # Bowel Movements 0 0 General: Alert, Cooperative, No Acute Distress Chest & Lungs: Chest Wall Normal Cardiovascular: Exam Unremarkable Extremities: No cyanosis/clubbing/edma bilat Neurological: Grossly Neurologically Intact IVs and Medications Medications Reviewed: Medications were reviewed in detail Lab and Diagnostics Result Diagram: 10/11/1630 10/11/16 0630 Assessment & Plan Ms. Cabrera is a pleasant 81 year old cachectic female with an unfortunate history of metastatic well-differentiated neuroendocrine carcinoma and resultant anasarca that [facility] to [facility] following a syncopal and unresponsive episode that followed an injection of octreotide that lasted approximately 35 minutes according to her daughter that was present throughout the event. Ms. Leiva was admitted for evaluation for her syncopal episodes. Hospital day one. Metastatic neuroendocrine tumor: - This appears a metastatic process, discussion with both palliative care and oncology today to consider moving in hospice - per oncology will consider one additionall scan to determine prognosis which appear quintinley to be very poor. - Pt has transitioned to DNR/DNI, will consider further comfort measure/hospice according to imaging results. Problem based considerations per below: Syncope, acute, present on admission. Under evaluation - Patient and daughter report 3 episodes occurring different days, follwoing activity, with no previous history - Denies any history of similar or neurological conditions, including seizures; denies h/o cardiac arrhythmias - DDx: Dysrhythmias, vasovagal, electrolyte abnormality, thyroid dysfunction, infection, seizure disorder, CA mets, drugs/Rx, - No recent changes in medications - Recent shift in fluids with recent paracentesis 09/29/2016 - UA negative; WBC 10.4; PCT pending - Received vanco and zosyn in ED; currently appears uninfected, but may not mount appropriate fevers/white count - AM labs + PCT + thyroid function + Mg/PO4 - Orthostatic vitals Elevated lactic acid, likely acute, present on admission. Monitored - On admit: LA 4.1, but normalized soon after. Acute kidney injury, present on admission. Monitored - On admit: Cr 1.06; baseline 0.65-0.97 - Likely secondary to dehydration; patient reports poor po intake; pt also received vanco and zosyn in ED - Holding ACEi, - Home meds: Enalapril 10mg qam, Lasix 20mg qam, spironolactone 50mg BID - NS 60 - AM labs held while planning if pt will be hospice vs active MGMT. will limit blood draws where possible. Suspected CXR abnormality, chronicity unknown, present on admission. 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 Ongoing - Patient reports minimal to zero appetite and weight loss with associated fatigue - Dietary consultation if not hospice approach. Anasarca, chronic. Presumed stable - Patient and daughter report that swelling at time of admission is improved compared to previous days - Likely secondary to low albumin levels; consider transfusion of albumin for fluid mobility and furosemide effectiveness - Dietary improvement Normocytic, normochromic anemia, likely chronic. Presumed stable - On admit: Hb 9.0, Hct 29.5 - Likely secondary to advanced age, h/o carcinoma - Monitor Hypomagnesemia, likely acute, present on admission. Under therapy - On admit: Mg 1.3 Generalized weakness and failure to thrive, chronic. 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 Ongoing - Followed by Dr. Costa of [facility] - Pt was admitted from [facility] to ED for eval of syncope - Consultation order placed for continued follow up - CUrrently CT pending to evaluate spread. - Will gently hydrate overnight, re-assess in am Goals of care, ongoing Palliative care consulted. See above. Patient status: Due to severity of presenting symptoms, expected course of care , and risk of adverse events, anticipated LOS > 2 midnights; admitted as INPT GI Prophylaxis: Not indicated VTE Prophylaxis: Sub-Q Heparin (Unfractionated) VTE Mechanical Devices: Intermittant Pneumatic CD Resuscitation Status: CPR: Attempt Resuscitation Time spent 25 minutes Jase Bahena DO Oct 11, 2016 19:14
--- NOTE | 2016-10-11 20:41 | DRSVH ---
PROCEDURE: CT CHEST, ABDOMEN AND PELVIS [facility] CONTRAST ([id number]) INDICATIONS: metastatic Neuroendorine cancer TECHNIQUE: After the administration of oral and intravenous contrast, 5 mm thick sections acquired from the lung apices to the symphysis. 5 mm coronal and sagittal reformats were performed, with additional 7 mm c oronal MIP reformats through the lungs. For radiation dose reduction, the following was used: autom ated exposure control, adjustment of mA and/or kV according to patient size. COMPARISON: [facility], CT, CT CHEST ABD PELVIS W CON, 06/29/2016, 13:56. [facility], CR, XR CHEST 1VW (PORTABLE), 10/11/2016, 5:36. FINDINGS: Image quality: Excellent. CHEST: Lungs and pleura: No acute airspace opacities other than expected bilateral atelectasis associated w ith new moderate bilateral pleural effusions. There are new bilateral small to moderate pleural effus ions but no pneumothorax or pulmonary nodule is found. Central and peripheral airways appear patent and normal in caliber. Mediastinum: Heart size is normal. No pericardial effusion. No mediastinal or hilar adenopathy by size criteria. Thoracic aorta and central pulmonary arteries are normal in size. Esophagus is pito l in caliber. No hiatal hernia. Chest wall: No axillary or supraclavicular adenopathy by size criteria. Thyroid gland is normal whe re well visualized. ABDOMEN: Solid organs: Liver and spleen are unchanged in size and enhancement, and a single identified hepati c mass lesion at the anterior left medial hepatic segment measuring up to 1.9 cm is not significantly changed considering differences in scan level and measurement angulation. Gallbladder contains a re latively large peripherally radiodense gallstones, measuring up to 2.7 cm but no acute cholecystitis or biliary obstruction is associated. Biliary system is non dilated. Pancreas enhances normally. N o adrenal nodules. Kidneys demonstrate normal size and enhancement, without hydronephrosis. Peritoneum and bowel: Bowel loops demonstrate normal wall thickness and caliber. No free air. Ther e is a large amount of ascites not previously present, and no peritoneal masses are found. There is, however, a left periaortic retroperitoneal mass measuring up to 2.4 cm in maximal transverse dimensi on as was previously the case. This is located at the axial level of the upper third of the left kid latonya. This likely is a gordy mass, and this clinical circumstance, and it appears to encase the renal artery on the left. Nodes and vessels: No new retroperitoneal or mesenteric adenopathy by size criteria. Aorta and infe rior vena cava are normal in size. Miscellaneous: No ventral hernias. PELVIS: Genitourinary: Bladder wall thickness is normal. Miscellaneous: No inguinal hernias or adenopathy. Increasing ascites is seen as was the case within the abdomen, now moderately large in overall quantity. Bones: No suspicious bony lesions. No vertebral body compression fractures. IMPRESSION: The dominant abnormality is a significant interval increase in the amount of ascites, no w large in quantity. There also now are new bilateral moderate pleural effusions. A liver mass and left periaortic adenopathy/retroperitoneal mass has not changed. No new soft tissue lesion is found. Generalized anasarca. Worsening cachexia. Dictated by: Prosper Velazquez M.D. on 10/11/2016 at 20:27 Approved by: Prosper Velazquez M.D. on 10/11/2016 at 20:40
[2016-10-12 00:27] VITALS: PULSE 65
[2016-10-12 00:45] VITALS: BP 145/78; PULSE 63; RESP 18; O2SAT 95
[2016-10-12] MEDS: Heparin 5,000 Unit/mL Inj SUBQ SCH ×3 (00:50→16:56)
--- NOTE | 2016-10-12 03:10 | NUR ---
Activity Pt has not had diarrhea this shift. Mepilex in place on coccyx. Tolerating q2 hour turns in bed. Pt denies pain. High patent, draining smiley urine.
[2016-10-12] MEDS: Piperacillin-Tazo 3.375 Gm Inj 3.375 GM in Dextrose 5% Minibag Plus 50 ML IV SCH ×3 (05:30→21:43)
[2016-10-12 06:23] VITALS: BP 96/62; PULSE 76; RESP 16; O2SAT 92
--- NOTE | 2016-10-12 09:25 | PCM.PALLBR ---
Palliative Care Recommendation Assessment: This is a very frail, cachectic lady with progression of her metastatic neuroendocrine cancer. If she had a cardiac arrest, her ribs would be fractured in the process of the procedure and she would not survive, because people with end stage cancer who undergo resuscitation do not recover after the procedure, they . Palliative Care will advise the pt and family that chest compressions and/or defibrillation would not bring her back to life and should not be attempted. See Plan and Prognosis statements below. Summary of palliative recommendations: Symptom management (Pain/other): currently managed by [facility], Dr. Bahena. 10/12: Discussed CT with Dr. Costa. He thinks CT shows improvement of liver lesions and think s her ascites is due to mesenteric mass compression on her SMV. He plans to meet with pt and her daughter today at 16:30pm to discuss options. ([facility] will not be able to attend this meeting.) 10/11 Family Conference Team Meeting (FCTM): Palliative Care met with pt and daughter to address their goals and code status per request of Attending Team. Fortuitously, Dr. Costa arrived to join our conversation. Drs. Guzman and Igor counseled pt that she needs to consider hospice. Dr. Costa would like her to have an abdominal CT to see if liver mets have grown and are causing her anasarca or if a there is possibly a blood clot in the liver circulation that is promoting increased anasarca. He feels the CT might give him information about whether to continue trying the octreotide to help pt's anasarca. After many questions, pt and family agree to DNR/DNI code status and to consider hospice at home. They have had a hospice intro visit at their home earlier and were undecided at that time. [facility] Care Team contacted Hospice on to let them know that the family may be more accepting after above discussion with Dr. Costa and [facility] Care Team. Prognosis: After examining patient today and reviewing her records, my clinical impression is that she has 2 months or less to live. She is eligible for hospice medicare benefit if she wishes to elect this option. Dr. Costa also believes she is eligible for hospice. Family/emotional support: excellent support from dtserenity Bruce and Janis's significant other. Janis and her mother have always lived together. Spiritual support: pt said she would appreciate hospital backpackers manager visits. Pall Care Team contacted [employer] services and asked for their assistance. Pt expresses fears of leaving her family behind, leaving her two pet dogs behind ( when she dies), and some fears of pain (which has not been a big issue so far in her disease progression). Problems: (1) Palliative care by specialist Status: Acute ICD Code: Z51.5 (2) Advanced care planning/counseling discussion Assessment & Plan: On 10/11, pt and family changed code to DNR/DNI and have been discussing hospice services in pt's home. Status: Acute ICD Code: Z71.89 (3) LAZO (dyspnea on exertion) Status: Acute ICD Code: R06.09 End of Life Preferences DPOA/Advanced Directives/POLST: 1. Code status currently is FULL CODE--changed to DNR/DNI after counseling pt and family today, 10/11. 2. POLST conversation deferred because family overwhelmed by poor prognosis and pt is "feeling scared" Goals of Care 1. Pt wants to go home as soon as possible. 2. She does not want to return to hospital in future. 3. She prefers to at home in her own bed. 4. She wants to spend as much time as possible with family and pets at home. Disposition likely home with home health services or with hospice, depending on options offered by Dr. Costa re: octreotide injections in future. (As hospice can not cover cost for octreotide doses like those used in oncology. They can only cover small SQ doses offered daily in pt's home.) Resuscitation Status Resuscitation Status: DNR/DNI:Do Not Resuscitate/Intubate POLST Updates/Changes Previous POLST?: No Antibiotics: Determine Use or Limitations Total time 35 minutes; >50% face to face with patient and/or family, providing counselling regarding plans and recommendations, and in care coordination with his/her medical teams. Palliative Brief Note Date of Service Oct 12, 2016 . Patient Identification: Ms. Leiva is a pleasant 81 year old cachectic female with an unfortunate history of metastatic well-differentiated neuroendocrine carcinoma and resultant anasarca that presented to [facility] following a syncopal and unresponsive episode that followed an injection of octreotide, that lasted approximately 35 minutes according to her daughter that was present throughout the event. Ms. Leiva was admitted on 10/10 for evaluation for her syncopal episodes. She has had two similar syncopal events since Monday.Ms. Cabrera's cancer has been managed by Dr. Costa since . It is likely carcinoid origin within the small bowel with metastases to liver and mesentery, with associated anasarca , and recently received therapeutic paracentesis 09/29/16 with removal of 3300cc fluid. Hospital Course: Pt decided (with her family) on 10/11 that she prefers to go home and is interested in help from hospice. She also had an abdominal CT 10/[address] Costa. Results are back, and we are awaiting Dr. Costa's decision on what interventions he might offer (monthly octreotide?) to alleviate her ascites. Subjective: Rn reports that pt just tried to get up with PT and while standing , she fainted and was "out" for a few minutes. Her blood pressure afterwards was 89/. Pt reports that she was conscious the whole time, but saw "morales in front of her eyes." She feels better now Exam: General: Alert/Oriented x3, Person, Place, Time, Situation, No acute distress, overall cachectic frail body frame HEENT: bitemplar wasting, head atraumatic, PERRLA, EOMI, Scleral Anicteric, Mucous Membr Moist/[place] Heart: S1, S2, III/ holosystolic murmur RRR Lungs: Clear to Percussion, Diminished, thin chest wall, prominent bone structure Abdomen: Bowel Tones x4, Soft, Non Tender, slightly distended Neuro: Arousable, Follows Commands, Spontaneous Eye Opening, Speech intact, no slurring, generalized weakness, left eye deviates out laterally intermittently ( her baseline), right eyelids droop. Extremities: Warm, Generalized Edema with pitting in lower extremities and mild edema in abdomen Skin: no skin breakdown or rashes on extremities, RN reports breakdown on buttocks and rico area CT CHEST, ABDOMEN AND PELVIS [facility] CONTRAST 10/11: COMPARISON: [facility]: CT CHEST ABD PELVIS W CON, 06/29/2016, and CXR 10/11/2016 CHEST: Lungs and pleura: No acute airspace opacities other than expected bilateral atelectasis associated with new moderate bilateral pleural effusions. There are new bilateral small to moderate pleural effusions but no pneumothorax or pulmonary nodule is found. Central and peripheral airways appear patent and normal in caliber. Mediastinum: Heart size is normal. No pericardial effusion. No mediastinal or hilar adenopathy by size criteria. Thoracic aorta and central pulmonary arteries are normal in size. Esophagus is normal in caliber. No hiatal hernia. Chest wall: No axillary or supraclavicular adenopathy by size criteria. Thyroid gland is normal where well visualized. ABDOMEN: Solid organs: Liver and spleen are unchanged in size and enhancement , and a single identified hepatic mass lesion at the anterior left medial hepatic segment measuring up to 1.9 cm is not significantly changed considering differences in scan level and measurement angulation. Gallbladder contains a relatively large peripherally radiodense gallstones, measuring up to 2.7 cm but no acute cholecystitis or biliary obstruction is associated. Biliary system is non dilated. Pancreas enhances normally. No adrenal nodules. Kidneys demonstrate normal size and enhancement, without hydronephrosis. Peritoneum and bowel: Bowel loops demonstrate normal wall thickness and caliber. No free air. There is a large amount of ascites not previously present, and no peritoneal masses are found. There is, however, a left periaortic retroperitoneal mass measuring up to 2.4 cm in maximal transverse dimension as was previously the case. This is located at the axial level of the upper third of the left kidney. This likely is a gordy mass, and this clinical circumstance, and it appears to encase the renal artery on the left. Nodes and vessels: No new retroperitoneal or mesenteric adenopathy by size criteria. Aorta and inferior vena cava are normal in size. Miscellaneous: No ventral hernias. PELVIS: Genitourinary: Bladder wall thickness is normal. Miscellaneous: No inguinal hernias or adenopathy. Increasing ascites is seen as was the case within the abdomen, now moderately large in overall quantity. Bones: No suspicious bony lesions. No vertebral body compression fractures. IMPRESSION: The dominant abnormality is a significant interval increase in the amount of ascites, now large in quantity. There also now are new bilateral moderate pleural effusions. A liver mass and left periaortic adenopathy/ retroperitoneal mass has not changed. No new soft tissue lesion is found. Generalized anasarca. Worsening cachexia. Dictated by: Prosper Velazquez M.D. on 10/11/2016 at 20:27 Sarita Guzman MD Oct 12, 2016 09:25 Sarita Guzman MD Oct 12, 2016 09:25
--- NOTE | 2016-10-12 10:24 | NUR ---
Wound Care Pressure ulcer protocol order received, pt seen at bedside. Thin 81 yo female admitted to [facility] with hypotension. Patients skin was inspected, patient presents with 2 small unstageable pressure injuries at either side of her coccyx that measure approx 1 cm in diameter each, there is no drainage or sign of infection, these were cleaned with saline and a mepilex dressing was replaced. Patient also presents with a 6 cm L x 4 cm W bruise on the lateral left lower leg, patient is unaware how long she has had it or how she got it. The skin is not open so it does not need a dressing at this time. No other skin issues are noted today. Recommend frequent repositioning and p500 mattress.
[2016-10-12] MEDS: 0.9% Sodium Chloride 1,000 ML IV SCH (10:41)
[2016-10-12 10:55] VITALS: PULSE 59
[2016-10-12 11:16] VITALS: BP 89/64; PULSE 78; RESP 22; O2SAT 91
--- NOTE | 2016-10-12 11:19 | NUR ---
syncope with PT while PT was working with pt, she stood for a few minutes while OPERATIONS BOARDMAN was attempting to get orthostatics, no BP was obtained, then she sat, still no BP. She then began to feeling whoozy, was unarousable after laying flat for about 4-5 minutes, still unable to obtain BP. while working with PT her HR was ST 130s, decreased back down to SR 80s after she was at rest. sats low 90s on 2L
--- NOTE | 2016-10-12 13:25 | PCM.PNMED ---
Subjective Date of Service Oct 12, 2016 Subjective Pt lying in bed at time of my exam, in no acute distress. She denies any discomfort, states she would like to go home. Waiting to talk with oncologist regarding results of CT. but she is aware that there is significant fluids and cancer mass. She seems to understand her prognosis is poor. Family was not present during my visit. Exam Vital Signs Vital Sign - Last Date Time Temp Pulse Resp B/P Pulse Ox O2 Delivery O2 Flow Rate FiO2 10/12/16 11:16 78 22 89/64 91 Nasal Cannula 2.00 10/12/16 06:23 36.8 Intake and Output 10/11/16 10/11/16 10/12/16 Cumulative From/Thru 15:00 23:00 07:00 10/10/16 15:59 - 10/12/16 06:42 Intake Total 621 ml 672 ml 200 ml 2311 ml Output Total 150 ml 500 ml 1000 ml Balance 621 ml 522 ml -300 ml 1311 ml Intake Oral 400 ml 200 ml 1000 ml IV Total 621 ml 272 ml 1311 ml Output Urine Total 150 ml 500 ml 1000 ml # Bowel Movements 2 2 4 Exam General: Alert, Cooperative, No Acute Distress Chest & Lungs: Chest Wall Normal Cardiovascular: Exam Unremarkable Extremities: No cyanosis/clubbing/edema bilaterally Neurological: Grossly Neurologically Intact IVs and Medications Medications Reviewed: Medications were reviewed in detail Lab and Diagnostics Result Diagram: 10/11/1662910/11/16629 Assessment & Plan Ms. Cabrera is a pleasant 81 year old cachectic female with an unfortunate history of metastatic well-differentiated neuroendocrine carcinoma and resultant anasarca that presented to [facility] following a syncopal and unresponsive episode that followed an injection of octreotide that lasted approximately 35 minutes according to her daughter that was present throughout the event. Ms. Leiva was admitted for evaluation for her syncopal episodes. Hospital day one. Metastatic neuroendocrine tumor: - This appears a metastatic process, discussion with both palliative care and oncology today to consider moving in hospice - per oncology will considered one additionally scan to determine prognosis which based on reading seems to be very poor, but will allow him to discuss this with patient and her family personally. - Pt has transitioned to DNR/DNI, will consider further comfort measure/hospice likely in next 1-2 days with DC home. Problem based considerations per below: Syncope, acute, present on admission. Under evaluation - Patient and daughter report 3 episodes occurring different days, following activity, with no previous history - Denies any history of similar or neurological conditions, including seizures; denies h/o cardiac arrhythmias - DDx: Dysrhythmias, vasovagal, electrolyte abnormality, thyroid dysfunction, infection, seizure disorder, CA mets, drugs/Rx, - No recent changes in medications - Recent shift in fluids with recent paracentesis 09/29/2016 - UA negative; WBC 10.4; PCT pending - Received Vanco and Zosyn in ED; currently appears uninfected, but may not mount appropriate fevers/white count - AM labs + PCT + thyroid function + Mg/PO4 - Orthostatic vitals Elevated lactic acid, likely acute, present on admission. Monitored - On admit: LA 4.1, but normalized soon after. Acute kidney injury, present on admission. Monitored - On admit: Cr 1.06; baseline 0.65-0.97 - Likely secondary to dehydration; patient reports poor po intake; pt also received vanco and zosyn in ED - Holding ACEi, - Home meds: Enalapril 10mg qam, Lasix 20mg qam, spironolactone 50mg BID - NS 60 - AM labs held while planning if pt will be hospice vs active MGMT. will limit blood draws where possible. Suspected CXR abnormality, chronicity unknown, present on admission. Monitor - CXR 10/10: Retrocardiac atelectasis, PNA, or aspiration - Patient has poor inspiratory effort - Acapella to open smaller airways - Continuing Zosyn at this time, but anticipating discontinuation with transition to comfort measures. Protein-calorie malnutrition with hypoalbuminemia, BMI 19, chronic. Ongoing - Patient reports minimal to zero appetite and weight loss with associated fatigue - Dietary consultation if not hospice approach. Anasarca, chronic. Presumed stable - Patient and daughter report that swelling at time of admission is improved compared to previous days - Likely secondary to low albumin levels; consider transfusion of albumin for fluid mobility and furosemide effectiveness - Dietary improvement Normocytic, normochromic anemia, likely chronic. Presumed stable - On admit: Hb 9.0, Hct 29.5 - Likely secondary to advanced age, h/o carcinoma - Monitor Hypomagnesemia, likely acute, present on admission. Under therapy - On admit: Mg 1.3 Generalized weakness and failure to thrive, chronic. 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 Ongoing - Followed by Dr. Costa of [facility] - Pt was admitted from [facility] to ED for eval of syncope - Consultation order placed for continued follow up - Currently CT pending to evaluate spread. - Will gently hydrate overnight, re-assess in am Patient status: Due to severity of presenting symptoms, expected course of care , and risk of adverse events, anticipated LOS > 2 midnights; admitted as INPT Pain Evaluation: Adequate Pain Control GI Prophylaxis: Not indicated VTE Prophylaxis: Sub-Q Heparin (Unfractionated) VTE Mechanical Devices: Intermittant Pneumatic CD Resuscitation Status: DNR/DNI:Do Not Resuscitate/Intubate Time spent 30 minutes Jase Bahena DO Oct 12, 2016 13:25 Jase Bahena DO Oct 12, 2016 13:25
--- NOTE | 2016-10-12 13:36 | NUR ---
JESS signed MU Hagen
--- NOTE | 2016-10-12 15:00 | NUR ---
Palliative care note D/A: Met with pt to provide support. She had indicated when PC team met with her on 10/11/16 that she felt scared when considering the fact that that there is really no further effective treatment left for her neuroendocrine tumor. Pt indicates that she met with Chaplain Anuj and found praying with her to be very soothing and comforting. Pt indicates that she feels a bit better today and is trying to approach her road ahead with thinking about what she can do, one day at a time. She expressed anger and frustration with lack of follow through on her initial finding of her tumor, as managed by her past PCP. Said a prayer with pt. Pt continues to find prosper in her pets and would like to have as much time as possible with them and her family. P: Palliative care to follow. Olya MAGALLANES, [facility]
--- NOTE | 2016-10-12 17:03 | NUR ---
spiritual care: pall care referral (late entry) conversational visit--son in law and dtr at bedside. pt reflected on her new diagnosis, uncertainty of condition and coping with this news as well as frail condition that might limit treatment options. pt overwhelmed. spiritual care to follow
--- NOTE | 2016-10-12 18:46 | NUR ---
spiritual care: follow up pt reflected on her hopes, fears and adjustments she anticipates with medical news evolving. Pt shares living space with dtr and man Isauro. she shared some concerns about home atmosphere and coping. 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
[2016-10-12 21:01] VITALS: BP 111/63; PULSE 76; RESP 18; O2SAT 92
--- NOTE | 2016-10-12 21:21 | CCS NOTE ---
[facility] [address] [place] [id number] MEDICAL ONCOLOGY OFFICE NOTE PATIENT: KARIN FERNANDEZ : 1935 MR#: [id number] DATE: 10/10/2016 JOB ID: [id number] DATE: 10/12/2016 The patient is sitting upright and her daughter and the fiance of her daughter are present. She appears more alert and interactive today. She has not had any nausea, vomiting. While lying down with her legs elevated, the swelling in the lower extremity has markedly improved. On exam, her abdomen is somewhat distended. Lungs clear to auscultation. Lower extremities show only trace edema. LABORATORIES: Show albumin of 1.8. Creatinine stable. We have performed now a CT scan of chest, abdomen, and pelvis with contrast yesterday afternoon. I have personally reviewed the images with Dr. Charles of Radiology and compared the images with the previous scan of June. The patient has, compared to the previous scan, much more ascites and incidentally a small pulmonary embolus in the left lower segmental artery of the left lower lobe, age undetermined. The degree of disease burden in the liver has clearly improved compared to the original CT scan. Some of the smaller lesions are no longer visible. Currently, they see essentially only one liver lesion that is 1.9 cm which is a clear improvement. However, the mesenteric mass that was in the left upper abdomen, likely the primary mass arising from the small bowel as carcinoid, is compressing on the superior mesenteric vein causing an open lesion. ASSESSMENT AND PLAN: An 81-year-old, frail lady, admitted for syncopal episode in the setting of metastatic carcinoid tumor to the liver with fairly extensive liver lesion and a mesenteric mass arising from the small bowel. She has had a couple of doses of octreotide on a monthly fashion as the only mild form of therapy she has received since her tumor is octreotide positive on the nuclear medicine test. She has been developing worsening ascites and anasarca in her legs and the poor functional status. She was admitted after a syncopal episode and during physical therapy yesterday had a similar event when she becomes less responsive and fainty. I think the B symptoms are likely orthostatic and hemodynamic rather than any serious cardiac or seizure activity. She spontaneously recovered from that, and we now reviewed the CT scan findings with the family and the family conference. The CT was personally reviewed with Dr. Charles. The report needed to be corrected for several issues including an incidental finding of a PE in the left lower lobe, age undetermined. She has been started on Lovenox anticoagulation. The tumor burden in the liver has actually improved compared to the original scan due to the effect of octreotide. However, this degree of ascites has massively increased and I think the reason for that is the mesenteric mass compressing and occluding the superior mesenteric vein. There is no flow beyond that level in the vein causing passive congestion and ascites as well as lower extremity edema. This might also be the source of thrombotic risk. This was my concern as discordant explanation of her ascites. The management of this is very challenging. We discussed that one option would be consideration of focal radiation to that mass to relieve the compression and occlusion effect of the SMV but that would be relatively toxic as the patient has ascites and radiation to the fluid might cause increased small-bowel exposure, and the patient would have to come in daily for several weeks. This discussion went several rounds back and forth between the patient and family being somewhat hesitant on one end to proceed with aggressive therapy and, on the other hand, would like not to stop treatment. Overall, my feeling is that the impact we can have to the patient's quality of life is rather negative as the radiation toxicity will be concerning, and her performance status and quality of life already is very poor and at age 81 this might not be the best approach for her even though the liver lesions have decreased in size. The family wanted to think about it, and I mentioned to them that I would favor for her to consider hospice. The anticoagulation is reasonable with Lovenox. I do not think that it would make sense to place her on Coumadin since she will likely require another paracentesis soon and it will have to come off of this. TIME SPENT WITH PATIENT: Approximately 1 hour and 10 minutes were spent in counseling and coordination of care.
[2016-10-13] VITALS (7 sets, daily range): BP systolic 67–120; BP diastolic 51–77; PULSE 52–88; RESP 16–20; O2SAT 92–95
[2016-10-13] MEDS: Heparin 5,000 Unit/mL Inj SUBQ SCH ×3 (00:30→17:39)
--- NOTE | 2016-10-13 04:20 | NUR ---
Skin integrity Pt continues to develop reddened areas on back, buttocks and hips unless turned at least every 2 hours, continued with frequent turning through night. Pt is cooperative and assists with turns to best of her ability. Mepilex in place on coccyx for protection. Pt continues to be incontinent with loose stool; aware of sensation and can notify staff for clean up. Hourly rounding ongoing.
[2016-10-13] MEDS: 0.9% Sodium Chloride 1,000 ML IV SCH ×3 (05:48→23:49)
[2016-10-13] MEDS: Piperacillin-Tazo 3.375 Gm Inj 3.375 GM in Dextrose 5% Minibag Plus 50 ML IV SCH ×3 (05:49→23:49)
--- NOTE | 2016-10-13 10:49 | NUR ---
Palliative care note D/A: Case discussed in PC rounds, with radha Cheek as well as with Joyce from [facility]. Note Dr. Costa's note from 10/12/16 evening. He has explained current CT results and does not feel that more octreotide would be of assistance. He has offered some rad trx to attempt to assist with tumor pushing on vein, with the thought that this may help alleviate some of her ascites. However, he also feels that the burden of this treatment, given her age, functional status and disease burden make this a troublesome option and he recommends hospice to the family. The family requested to be able to think about this overnight. Dr. Gannon has left message for pt dtr. Pt RN aware that PC will want to talk to pt/dtr when dtr arrives. This worker to communicate with [facility] regarding decision. P: Palliative care to follow. Olya LOMBARDISW, [facility] Addendum: 10/13/16 at 1458 by LUZMARIA MOORE Palliative care note amendment D/A: Family still not here for visit. Unable to leave message as vm is full. Nrs will call PC provider when family arrives. Phone call from Joyce at [facility] to indicate that she will hold spot for pt for Monday10/17/16. Joyce is aware that [place]/family [place] of [place]. She would like to have pt seen in the morning. PC has not been able to follow up with family regarding decision of rad trx vs hospice. Above [facility] arrangements can be canceled should pt and family decide for rad trx. Phone call to [facility] dcp to discuss. P: Palliative care to follow. Olya MAGALLANES, [facility] Addendum: 10/13/16 at 1544 by LUZMARIA MOORE PC note amendment [facility] D/A: Phone call from Joyce who will save pt spot for Monday10/17/16 with am discharge. Phone call to [facility] to discuss, Met with pt and dtr as well as Dr. Gannon. Family has decided to not undergo rad trx and would like to dc on Hospice. Dr. Gannon notes that pt will need dc on same day as [facility] open. Family would like hosp bed, commode, over the bed table, w/c, O2 and this is communicated to Joyce. Have ask [facility] to please put pt on list for any cancellations as pt is longing to get home. Joyce to order equipment and work with family on this., Pt misses her dogs badly. Dtr will provide visit for pt with her youngest dog who is in the car today. [facility] aware of above. P: Palliative care to follow. Olya MAGALLANES [facility]
--- NOTE | 2016-10-13 14:37 | PCM.PALLBR ---
Palliative Care Recommendation Assessment: This is a very frail, cachectic lady with progression of her metastatic neuroendocrine cancer. If she had a cardiac arrest, her ribs would be fractured in the process of the procedure and she would not survive, because people with end stage cancer who undergo resuscitation do not recover after the procedure, they . Palliative Care has advised the pt and family that chest compressions and/or defibrillation would not bring her back to life and should not be attempted. See Plan and Prognosis statements below. Summary of palliative recommendations: Symptom management (Pain/other): [facility], Dr. Bahena. 10/13: Awaiting family decision regarding proceeding with palliative radiation. I have been unable to contact the patient's daughter and her cell phone voicemail is full and will not accept new messages. Will follow-up with patient and family when they are available at the hospital. Plan on assisting in completion of POLST when family is available. 10/12: Discussed CT with Dr. Costa. He thinks CT shows improvement of liver lesions and think s her ascites is due to mesenteric mass compression on her SMV. He plans to meet with pt and her daughter today at 16:30pm to discuss options. ([facility] will not be able to attend this meeting.) His note of 10/12 reviewed and appreciated. Prognosis: After examining patient and reviewing her records, Dr. Guzman noted that her clinical impression was that she has 2 months or less to live. She is eligible for hospice medicare benefit if she wishes to elect this option. Dr. Costa also believes she is eligible for hospice. Family/emotional support: excellent support from daughter Janis and Janis's significant other. Janis and her mother have always lived together. 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 Pall Care Team contacted [employer] services and asked for their assistance. Pt expresses fears of leaving her family behind, leaving her two pet dogs behind ( when she dies), and some fears of pain (which has not been a big issue so far in her disease progression). Problems: (1) Palliative care by specialist Status: Acute ICD Code: Z51.5 (2) Advanced care planning/counseling discussion Assessment & Plan: On 10/11, pt and family changed code to DNR/DNI and have been discussing hospice services in pt's home. Status: Acute ICD Code: Z71.89 (3) LAZO (dyspnea on exertion) Status: Acute ICD Code: R06.09 End of Life Preferences DPOA/Advanced Directives/POLST: 1. Code status currently DNR/DNI after counseling pt and family 10/12. 2. POLST conversation deferred because family overwhelmed by poor prognosis and pt is "feeling scared" Goals of Care 1. Pt wants to go home as soon as possible. 2. She does not want to return to hospital in future. 3. She prefers to at home in her own bed. 4. She wants to spend as much time as possible with family and pets at home. Disposition likely home with home health services or with hospice, depending on options offered by Dr. Costa re: octreotide injections in future and possible palliative radiation. (As hospice can not cover cost for octreotide doses like those used in oncology. They can only cover small SQ doses offered daily in pt' s home.) Resuscitation Status Resuscitation Status: DNR/DNI:Do Not Resuscitate/Intubate POLST Updates/Changes Previous POLST?: No Antibiotics: Determine Use or Limitations . Advanced Care Planning Address: Comfort care Pain: None Total time 35 minutes; >50% face to face with patient, providing counselling regarding plans and recommendations, and in care coordination with her medical teams. Palliative Brief Note Date of Service Oct 13, 2016 . Returned to reevaluate patient. Prior to visiting, reviewed her updated records in the EMR in detail, and received signout from other palliative provider. I attempted to contact her daughter by phone, but her voicemail is full and could not accept any messages. I have left my cell number with the bedside nurse with request contact me when she arrives. On my arrival, patient is lying comfortably in bed. Awake to answer simple questions appropriately. Denies any pain or dyspnea. On exam, she is an incredibly frail elderly woman in no distress. Vital signs noted. Skin grayish , warm and dry. Head and neck exam without acute findings. Lungs clear anteriorly, heart sounds regular, abdomen soft and without tenderness. Prasanth Gannon MD Oct 13, 2016 14:37
--- NOTE | 2016-10-13 15:38 | PCM.PALLBR ---
Palliative Brief Note Date of Service Oct 13, 2016 . Patient's daughter Janis arrived late afternoon and we spoke- Ms. Soni/ MU also present. Patient and family have decided NOT to pursue palliative XRT and wish to discharge home when possible with hospice support. Discussed needs (equipment, meds, O2, etc.) and plans with patient's daughter. She is comfortable with the plans, though does not want patient taken home before hospice can formally open her care (probably Monday, but sooner if opening appears in hospice's schedule). Discussed with Dr. Bahena by phone. He will help arrange paracentesis before DC for comfort purposes. Will plan on completing new POLST tomorrow, documenting comfort measures, etc. when Janis returns in the mid-afternoon. Additional time spent today- 40 minutes- greater than 50% in direct contact with patient and her daughter, discussing end of life care plans and arrangements. Prasanth Gannon MD Oct 13, 2016 15:38
--- NOTE | 2016-10-13 16:21 | NUR ---
Social Work-Continued Discharge Planning: Data & Assessment: SW met with patient and patient's daughter to discuss discharge planning. Dr. Gannon and PC NICOLÁS Dobson were also present when SW arrived. Patient has decided to discharge home on hospice. Dr. Gannon stated that patient will need to discharge on the day that hospice is able to open. PC SW notified [facility]. [facility] will notify if an open date becomes available before 10/17 which is the current open date. SW will continue to follow and assist patient with discharge planning needs. Plan: Patient will discharge home with [facility]. The estimated hospice open date is 10/17, but patient will discharge prior to 10/17 if there is any cancellations. SW will continue to follow. Fide Colon LMSW, ACM
--- NOTE | 2016-10-13 17:00 | PCM.PNMED ---
Subjective Date of Service Oct 13, 2016 Subjective Patient remains comfortable lying in hospital bed. Following discussion with Dr. Costa based on all available information all parties agree that a movement towards hospice care as an inpatient specimen just at this time. My evaluation patient had no acute complaints or concerns. Denies any pain or discomfort. Exam Vital Signs Vital Sign - Last Date Time Temp Pulse Resp B/P Pulse Ox O2 Delivery O2 Flow Rate FiO2 10/13/16 10:42 87 67/51 10/13/16 10:41 36.3 18 92 Nasal Cannula 2.00 Intake and Output 10/12/16 10/12/16 10/13/16 Cumulative From/Thru 15:00 23:00 07:00 10/10/16 15:59 - 10/13/16 06:31 Intake Total 713 ml 800 ml 1506 ml 5330 ml Output Total 150 ml 475 ml 1625 ml Balance 713 ml 650 ml 1031 ml 3705 ml Intake Oral 800 ml 100 ml 1900 ml IV Total 713 ml 1406 ml 3430 ml Output Urine Total 150 ml 475 ml 1625 ml # Bowel Movements 5 1 10 General: Alert, Cooperative, No Acute Distress, Other (vision is lying comfortably in hospital bed) Neurological: Grossly Neurologically Intact IVs and Medications Medications Reviewed: Medications were reviewed in detail Lab and Diagnostics Result Diagram: 10/11/1630 10/11/1630 Assessment & Plan Ms. Cabrera is a pleasant 81 year old cachectic female with an unfortunate history of metastatic well-differentiated neuroendocrine carcinoma and resultant anasarca that presented to [facility] from [facility] following a syncopal and unresponsive episode that followed an injection of octreotide that lasted approximately 35 minutes according to her daughter that was present throughout the event. Ms. Leiva was admitted for evaluation for her syncopal episodes. Metastatic neuroendocrine tumor: - This appears a metastatic process, discussion with both palliative care and oncology today to consider moving in hospice - per oncology will considered one additionally scan to determine prognosis which based on reading seems to be very poor, but will allowed him to discuss this with patient and her family personally. - Pt has transitioned to DNR/DNI, Family and patient are now interested in a transition to hospice care One as any issue may be to consider a therapeutic paracentesis to remove excessive fluid in peritoneal cavity which may provide added relief of pressure and additional comfort to patient prior to discharge home on hospice care Problem based considerations per below: Syncope, acute, present on admission. Under evaluation - Patient and daughter report 3 episodes occurring different days, following activity, with no previous history - Denies any history of similar or neurological conditions, including seizures; denies h/o cardiac arrhythmias - DDx: Dysrhythmias, vasovagal, electrolyte abnormality, thyroid dysfunction, infection, seizure disorder, CA mets, drugs/Rx, - No recent changes in medications - Recent shift in fluids with recent paracentesis 09/29/2016 - UA negative; WBC 10.4; PCT pending - Received Vanco and Zosyn in ED; currently appears uninfected, but may not mount appropriate fevers/white count - AM labs + PCT + thyroid function + Mg/PO4 - Orthostatic vitals canceled as are daily lab values. This condition will not be worked up further. Elevated lactic acid, likely acute, present on admission. Monitored - On admit: LA 4.1, but normalized soon after. Acute kidney injury, present on admission. Monitored - On admit: Cr 1.06; baseline 0.65-0.97 - Likely secondary to dehydration; patient reports poor po intake; pt also received vanco and zosyn in ED - Holding ACEi, - Home meds: Enalapril 10mg qam, Lasix 20mg qam, spironolactone 50mg BID - NS 60 Further evaluation held as will no longer redoing blood draws Suspected CXR abnormality, chronicity unknown, present on admission. Monitor - CXR 10/10: Retrocardiac atelectasis, PNA, or aspiration - Patient has poor inspiratory effort - Acapella to open smaller airways - Continuing Zosyn at this time, but anticipating discontinuation with transition to comfort measures. Protein-calorie malnutrition with hypoalbuminemia, BMI 19, chronic. Ongoing - Patient reports minimal to zero appetite and weight loss with associated fatigue - Dietary consultation if not hospice approach. Anasarca, chronic. Presumed stable - Patient and daughter report that swelling at time of admission is improved compared to previous days - Likely secondary to low albumin levels; consider transfusion of albumin for fluid mobility and furosemide effectiveness - Dietary improvement - As noted above this is likely a complication of patient's metastatic process, no further intervention aside from possible therapeutic paracentesis prior to discharge on hospice care. Normocytic, normochromic anemia, likely chronic. Presumed stable - On admit: Hb 9.0, Hct 29.5 - Likely secondary to advanced age, h/o carcinoma - No longer Monitoring Hypomagnesemia, likely acute, present on admission. Under therapy - On admit: Mg 1.3 Generalized weakness and failure to thrive, chronic. Ongoing - Likely secondary to Dx carcinoma, and/or electrolyte abnormalities, poor po intake - PT eval - Dietary consult, as noted above - Patient now will eat to comfort/purplish Patient status: Patient is now awaiting establishment of hospice services at home to allow for comfortable transition to hospice care. On hospital we will pursue only comfort measures, only pending intervention may be the consideration of a therapeutic paracentesis prior to discharge. No provide no further blood draws, however will leave antibiotic and IV fluids and place at this time, likely discontinuation tomorrow on further conversation with family and palliative care team. Pain Evaluation: Adequate Pain Control GI Prophylaxis: Not indicated VTE Prophylaxis: Sub-Q Heparin (Unfractionated) VTE Mechanical Devices: Intermittant Pneumatic CD Resuscitation Status: DNR/DNI:Do Not Resuscitate/Intubate Time spent 25 minutes Jase Bahena DO Oct 13, 2016 17:00
--- NOTE | 2016-10-13 19:10 | NUR ---
diarrhea pt has had frequent diarrhea, sometimes watery, perineum and sacrum very red, has Mepilex foam dressing on sacrum, using Camoseptine around rico-rectal area
[2016-10-14] MEDS: Heparin 5,000 Unit/mL Inj SUBQ SCH ×3 (00:08→16:47)
[2016-10-14 00:14] VITALS: BP 118/72; PULSE 62; RESP 16; O2SAT 92
[2016-10-14 03:51] VITALS: PULSE 59
--- NOTE | 2016-10-14 05:36 | NUR ---
Tele/Activity/pain Pt rested most of the shift without s/sx of distress or discomfort. Denies chest pain and shortness of breath. [id number] for comfort. Tele: Sinus gretchen HR 52 per bus monitor. Care ongoing.
[2016-10-14 06:01] VITALS: BP 112/71; PULSE 62; RESP 16; O2SAT 92
[2016-10-14 08:00] VITALS: PULSE 53
[2016-10-14] MEDS: Piperacillin-Tazo 3.375 Gm Inj 3.375 GM in Dextrose 5% Minibag Plus 50 ML IV SCH ×2 (08:39→16:47)
[2016-10-14 11:22] VITALS: BP 112/66; PULSE 69; RESP 15; O2SAT 90
--- NOTE | 2016-10-14 14:20 | PCM.PNMED ---
Subjective Date of Service Oct 14, 2016 Subjective No complaints Exam Vital Signs Vital Sign - Last Date Time Temp Pulse Resp B/P Pulse Ox O2 Delivery O2 Flow Rate FiO2 10/14/16 11:22 36.0 69 15 112/66 90 Nasal Cannula 2.00 Intake and Output 10/13/16 10/13/16 10/14/16 Cumulative From/Thru 15:00 23:00 07:00 10/10/16 15:59 - 10/14/16 06:37 Intake Total 1321 ml 956 ml 7607 ml Output Total 250 ml 650 ml 2525 ml Balance 1071 ml 306 ml 5082 ml Intake Oral 500 ml 300 ml 2700 ml IV Total 821 ml 656 ml 4907 ml Output Urine Total 250 ml 650 ml 2525 ml # Bowel Movements 2 0 12 Exam General: Alert and oriented, no acute distress Heart: Regular Lungs: Clear Abdomen: Soft, non-tender Extremities: Trace pedal edema Lab and Diagnostics Result Diagram: 10/11/1662910/11/16629 Assessment & Plan Ms. Cabrera is a pleasant 81 year old cachectic female with an unfortunate history of metastatic well-differentiated neuroendocrine carcinoma and resultant anasarca that presented [facility] following a syncopal and unresponsive episode that followed an injection of octreotide that lasted approximately 35 minutes according to her daughter that was present throughout the event. Ms. Leiva was admitted for evaluation for her syncopal episodes. Metastatic neuroendocrine tumor: - Palliative care has consulted - Pt has transitioned to DNR/DNI, Family and patient are now interested in a transition to hospice care, first opening for home hospice is Monday - have ordered a therapeutic paracentesis for Monday to remove excessive fluid in peritoneal cavity which may provide added relief of pressure and additional comfort to patient prior to discharge home on hospice care Problem based considerations per below: Syncope, acute, present on admission. Under evaluation - Patient and daughter report 3 episodes occurring different days, following activity, with no previous history - Denies any history of similar or neurological conditions, including seizures; denies h/o cardiac arrhythmias - DDx: Dysrhythmias, vasovagal, electrolyte abnormality, thyroid dysfunction, infection, seizure disorder, CA mets, drugs/Rx, - No recent changes in medications - Recent shift in fluids with recent paracentesis 09/29/2016 - UA negative; WBC 10.4; PCT pending - Received Vanco and Zosyn in ED; currently appears uninfected, but may not mount appropriate fevers/white count - AM labs + PCT + thyroid function + Mg/PO4 - Orthostatic vitals canceled as are daily lab values. This condition will not be worked up further. Elevated lactic acid, likely acute, present on admission. Monitored - On admit: LA 4.1, but normalized soon after. Acute kidney injury, present on admission. Monitored - On admit: Cr 1.06; baseline 0.65-0.97 - Likely secondary to dehydration; patient reports poor po intake; pt also received vanco and zosyn in ED - Holding ACEi, - Home meds: Enalapril 10mg qam, Lasix 20mg qam, spironolactone 50mg BID - NS 60 Further evaluation held as will no longer redoing blood draws Suspected CXR abnormality, chronicity unknown, present on admission. Monitor - CXR 10/10: Retrocardiac atelectasis, PNA, or aspiration - Patient has poor inspiratory effort - Acapella to open smaller airways - Continuing Zosyn at this time, but anticipating discontinuation with transition to comfort measures, await palliative care follow up. Protein-calorie malnutrition with hypoalbuminemia, BMI 19, chronic. Ongoing - Patient reports minimal to zero appetite and weight loss with associated fatigue - Dietary consultation if not hospice approach. Anasarca, chronic. Presumed stable - Patient and daughter report that swelling at time of admission is improved compared to previous days - Likely secondary to low albumin levels; - Dietary improvement - As noted above this is likely a complication of patient's metastatic process, no further intervention aside from possible therapeutic paracentesis prior to discharge on hospice care. Normocytic, normochromic anemia, likely chronic. Presumed stable - On admit: Hb 9.0, Hct 29.5 - Likely secondary to advanced age, h/o carcinoma - No longer Monitoring Hypomagnesemia, likely acute, present on admission. Under therapy - On admit: Mg 1.3 Generalized weakness and failure to thrive, chronic. Ongoing - Likely secondary to Dx carcinoma, and/or electrolyte abnormalities, poor po intake - PT eval - Dietary consult, as noted above - Patient now will eat to comfort/purplish Patient status: Patient is now awaiting establishment of hospice services at home to allow for comfortable transition to hospice care. On hospital we will pursue only comfort measures, only pending intervention may be the consideration of a therapeutic paracentesis prior to discharge. No provide no further blood draws, however will leave antibiotic and IV fluids and place at this time, likely discontinuation tomorrow on further conversation with family and palliative care team. GI Prophylaxis: Not indicated VTE Prophylaxis: Sub-Q Heparin (Unfractionated) VTE Mechanical Devices: Intermittant Pneumatic CD Resuscitation Status: DNR/DNI:Do Not Resuscitate/Intubate Geno White MD Oct 14, 2016 14:20
--- NOTE | 2016-10-14 15:21 | PCM.PALLBR ---
Palliative Care Recommendation Assessment: This is a very frail, cachectic lady with progression of her metastatic neuroendocrine cancer. If she had a cardiac arrest, her ribs would be fractured in the process of the procedure and she would not survive, because people with end stage cancer who undergo resuscitation do not recover after the procedure, they . Palliative Care has advised the pt and family that chest compressions and/or defibrillation would not bring her back to life and should not be attempted. See Plan and Prognosis statements below. Summary of palliative recommendations: Symptom management (Pain/other): [facility] Dr[facility] Bahena. Goals: Established. Patient and family have decided NOT to pursue palliative XRT and wish to discharge home when possible with hospice support. Dr. Gannon and Dr. 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 (Probably Monday, but sooner if opening appears in hospice's schedule). Dr. Guzman completed POLST with patient on 10/14 as Daughter Janis had not yet arrived by 15:30pm. Original on paper chart and 3 copies tucked into D/C folder , to be picked up by daughter and hospice. Prognosis: After examining patient and reviewing her records, Dr. Guzman noted that her clinical impression was that she has 2 months or less to live. She is eligible for hospice medicare benefit if she wishes to elect this option. Dr. Costa also believes she is eligible for hospice. Family/emotional support: excellent support from daughter Janis and Janis's significant other. Janis and her mother have always lived together. Spiritual support: pt said she would appreciate hospital land resource specialist visits. Pall Care Team contacted Paediatric Surgeon services and asked for their assistance. Pt expresses fears of leaving her family behind, leaving her two pet dogs behind ( when she dies), and some fears of pain (which has not been a big issue so far in her disease progression). Palliative Care Team will now sign off Mrs. Leiva's case as her goals are clear, we have no symptoms to manage, and she is awaiting disposition to hospice on monOctober 17. Thank you for consult. Problems: (1) Palliative care by specialist Status: Acute ICD Code: Z51.5 (2) Advanced care planning/counseling discussion Assessment & Plan: On 10/11, pt and family changed code to DNR/DNI and have been discussing hospice services in pt's home. Status: Acute ICD Code: Z71.89 (3) LAZO (dyspnea on exertion) Status: Acute ICD Code: R06.09 End of Life Preferences DPOA/Advanced Directives/POLST: 1. Code status currently DNR/DNI after counseling pt and family 10/12. 2. POLST conversation deferred because family overwhelmed by poor prognosis and pt is "feeling scared" Goals of Care 1. Pt wants to go home as soon as possible. 2. She does not want to return to hospital in future. 3. She prefers to at home in her own bed. 4. She wants to spend as much time as possible with family and pets at home. Disposition likely home with home health services or with hospice, depending on options offered by Dr. Costa re: octreotide injections in future and possible palliative radiation. (As hospice can not cover cost for octreotide doses like those used in oncology. They can only cover small SQ doses offered daily in pt' s home.) Resuscitation Status Resuscitation Status: DNR/DNI:Do Not Resuscitate/Intubate POLST Updates/Changes Previous POLST?: No Antibiotics: Determine Use or Limitations Total time 35 minutes; >50% face to face with patient and/or family, providing counselling regarding plans and recommendations, and in care coordination with his/her medical teams. Sarita Guzman MD Oct 14, 2016 15:21
--- NOTE | 2016-10-14 15:38 | NUR ---
Palliative care note D/A: Phone call from Joyce at [facility] to indicate that agency will open pt on Monday10/17/16. They would like pt to be at home by 1100 and therefore she will need an early dc as she lives close to [place]. Msg left for [employer]A OPERATOR in regards to above and have also left a message for Joyce that this worker is aware of the need for pt to be dc'ed early on 10/17/16. P: Palliative care to follow as needed. Olya MAGALLANES, CCM
--- NOTE | 2016-10-14 15:49 | NUR ---
spiritual care: follow up pt reflective about change in status, specifics about hospice care and new limitations to her life. matter of fact manner as she described her thoughts about coming to the end of her life after a lifetime of activity, caring for others etc. prayer
--- NOTE | 2016-10-14 19:13 | NUR ---
Mentation Patient alert and oriented this shift, denies pain, nausea or other difficulties. Patient turned Q2 to patient preference. Care is ongoing.
--- NOTE | 2016-10-14 19:17 | NUR ---
Social Work: Continued Discharge Planning Data & Assessment: SW called [facility] and spoke with Joyce to confirm that patient would still open with [facility] on 10/17/16. Joyce confirmed that patient would open with [facility] on 10/17/16. SW notified Joyce that the patient is still available to open on an earlier date if on becomes available. Joyce stated that patient will need an early dc on 10/17/16 because they paln to open with the patient at the home in the a.m. SW will pass the message in report. SW will continue to follow and assist patient with discharge planning. Plan: Patient will discharge home with [facility] on 10/17/16. SW will continue to follow. Fide Colon LMSW, LILIAN
[2016-10-14 20:00] VITALS: BP 122/82; PULSE 81; RESP 16; O2SAT 95
[2016-10-15] MEDS: Piperacillin-Tazo 3.375 Gm Inj 3.375 GM in Dextrose 5% Minibag Plus 50 ML IV SCH ×3 (00:51→16:18)
[2016-10-15] MEDS: Heparin 5,000 Unit/mL Inj SUBQ SCH ×3 (00:51→16:18)
--- NOTE | 2016-10-15 05:44 | NUR ---
Uneventful night Pt denies pain all shift, turned q 2hrs, A&O x3.
[2016-10-15 05:50] VITALS: BP 104/69; PULSE 75; RESP 18; O2SAT 93
[2016-10-15 14:07] VITALS: BP 126/81; PULSE 79; RESP 16; O2SAT 94
--- NOTE | 2016-10-15 14:50 | NUR ---
Social Work: Readiness for Discharge D: EMR reviewed; pt is on day 5 of stay and is awaiting discharge home with hospice to open on Monday. INDUSTRIAL FURNACE FABRICATOR spoke with pt's daughter, Janis, to confirm discharge plan. She agrees with the plan for the pt to come home and states that the pt's DME (hospital bed, oxygen and bedside table) were delivered yesterday. INDUSTRIAL FURNACE FABRICATOR reviewed pt's chart and spoke with bedside RN. Pt is unable to maintain upright seated position and has been on bedrest except with PT. INDUSTRIAL FURNACE FABRICATOR explained that pt is able to transport BLS but cannot guarantee that Medicare/Medicaid will cover this cost. Pt's daughter understands that the pt could receive a bill for this and feels it is the safest method of transportation. t/c to [facility]; transportation arranged for Monday October 17, 2016 at 1000. A: Pt who is on comfort care. P: Anticipate pt to discharge home on Tuesday 10/17 via BLS ([facility] pickup at 10:00am) with hospice to open at 12:00pm at the pt's home. MU Rivas
--- NOTE | 2016-10-15 16:01 | PCM.PNMED ---
Subjective Date of Service Oct 15, 2016 Subjective No complaints, denies pain, not feeling that abdomen is overly distended or uncomfortable. Exam Vital Signs Vital Sign - Last Date Time Temp Pulse Resp B/P Pulse Ox O2 Delivery O2 Flow Rate FiO2 10/15/16 14:07 36.3 79 16 126/81 94 Nasal Cannula 2.00 Intake and Output 10/14/16 10/14/16 10/15/16 Cumulative From/Thru 15:00 23:00 07:00 10/10/16 15:59 - 10/14/16 19:29 Intake Total 714 ml 8321 ml Output Total 200 ml 2725 ml Balance 514 ml 5596 ml Intake Oral 100 ml 2800 ml IV Total 614 ml 5521 ml Output Urine Total 200 ml 2725 ml # Bowel Movements 12 Exam General: Alert and oriented, no acute distress Heart: Regular Lungs: Clear anteriorly and laterally Abdomen: Somewhat protuberant but Soft, non-tender, active bowel tones Extremities: Trace to 1+ pedal edema IVs and Medications Medications Reviewed: Medications were reviewed in detail Lab and Diagnostics Result Diagram: 10/11/1662910/11/1630 Assessment & Plan Ms. Cabrera is a pleasant 81 year old cachectic female with an unfortunate history of metastatic well-differentiated neuroendocrine carcinoma and resultant anasarca that presented [facility] following a syncopal and unresponsive episode that followed an injection of octreotide that lasted approximately 35 minutes according to her daughter that was present throughout the event. Ms. Leiva was admitted for evaluation for her syncopal episodes. Metastatic neuroendocrine tumor: - Palliative care has consulted - Pt has transitioned to DNR/DNI, Family and patient are now interested in a transition to hospice care, first opening for home hospice is Monday - have ordered a therapeutic paracentesis for Monday to remove excessive fluid in peritoneal cavity which may provide added relief of pressure and additional comfort to patient prior to discharge home on hospice care - However patient is to be discharged in the morning (transport arranged for 10 AM) so she can be home by her noon appointment with home hospice so we may decide to cancel the paracentesis, especially as she does not currently seem in any discomfort from her ascites Syncope, acute, present on admission, has not recurred - Possibly due to Recent shift in fluids with recent paracentesis 09/29/2016 - UA negative; WBC 10.4; - Received Vanco and Zosyn in ED; currently appears uninfected, but may not mount appropriate fevers/white count - Orthostatic vitals canceled as are daily lab values. This condition will not be worked up further. Elevated lactic acid, likely acute, present on admission. Monitored - On admit: LA 4.1, but normalized soon after. Acute kidney injury, present on admission. Monitored - On admit: Cr 1.06; baseline 0.65-0.97 - Likely secondary to dehydration; patient reports poor po intake; pt also received vanco and zosyn in ED - Holding ACEi, - Home meds: Enalapril 10mg qam, Lasix 20mg qam, spironolactone 50mg BID - Initial IV fluids, discontinued when it appeared she was taking adequate oral liquids Further evaluation held as will no longer redoing blood draws Suspected CXR abnormality, chronicity unknown, present on admission. Monitor - CXR 10/10: Retrocardiac atelectasis, PNA, or aspiration - Patient has poor inspiratory effort - Acapella to open smaller airways - Continuing Zosyn at this time, but anticipating discontinuation with transition to comfort measures, await palliative care follow up. Protein-calorie malnutrition with hypoalbuminemia, BMI 19, chronic. Ongoing - Patient reports minimal to zero appetite and weight loss with associated fatigue - Since transitioning to hospice will not pursue this further allow patient to eat to comfort Anasarca, chronic. Presumed stable - Patient and daughter report that swelling at time of admission is improved compared to previous days - Likely secondary to low albumin levels; - As noted above this is likely a complication of patient's metastatic process, no further intervention aside from possible therapeutic paracentesis prior to discharge on hospice care. Normocytic, normochromic anemia, likely chronic. Presumed stable - On admit: Hb 9.0, Hct 29.5 - Likely secondary to advanced age, h/o carcinoma - No longer Monitoring Hypomagnesemia, likely acute, present on admission. - On admit: Mg 1.3 - No further lab draws planned Generalized weakness and failure to thrive, chronic. Ongoing - Likely secondary to Dx carcinoma, and/orpoor po intake Disposition: Plan is for discharge home Monday, transport arranged for 10 AM, so that she will be home by the time home hospice comes for her intake evaluation at noon GI Prophylaxis: Not indicated VTE Prophylaxis: Sub-Q Heparin (Unfractionated) VTE Mechanical Devices: Intermittant Pneumatic CD Resuscitation Status: DNR/DNI:Do Not Resuscitate/Intubate Geno White MD Oct 15, 2016 16:01
--- NOTE | 2016-10-15 17:43 | NUR ---
Q2 Turns, Mentation Patient alert and oriented this shift, no complaint of pain, nausea or other difficulty. Patient offered to turn Q2 hours, sometimes refusing despite education. Heels and elbows floated. Care is ongoing.
[2016-10-15 21:50] VITALS: BP 130/86; PULSE 68; RESP 18; O2SAT 95
[2016-10-16] MEDS: Heparin 5,000 Unit/mL Inj SUBQ SCH ×3 (00:58→17:25)
[2016-10-16] MEDS: Piperacillin-Tazo 3.375 Gm Inj 3.375 GM in Dextrose 5% Minibag Plus 50 ML IV SCH ×3 (00:59→16:32)
--- NOTE | 2016-10-16 05:41 | NUR ---
Comfort Pt comfortable all shift, denies pain, turned q 2 hrs.
[2016-10-16 06:44] VITALS: BP 104/63; PULSE 70; RESP 16; O2SAT 97
[2016-10-16 09:14] VITALS: BP 83/60; PULSE 100; RESP 16; O2SAT 92
--- NOTE | 2016-10-16 10:00 | NUR ---
JESS Explained to pt's daughter verbal consent via telephone conversation
[2016-10-16 11:36] VITALS: BP 111/67; PULSE 82; RESP 20; O2SAT 100
--- NOTE | 2016-10-16 13:23 | PCM.PNMED ---
Subjective Date of Service Oct 16, 2016 Subjective No complaints, denies pain, denies abdominal distention or discomfort. Exam Vital Signs Vital Sign - Last Date Time Temp Pulse Resp B/P Pulse Ox O2 Delivery O2 Flow Rate FiO2 10/16/16 11:36 36.4 82 20 111/67 100 Nasal Cannula 2.00 Intake and Output 10/15/16 10/15/16 10/16/16 Cumulative From/Thru 15:00 23:00 07:00 10/10/16 15:59 - 10/16/16 07:00 Intake Total 100 ml 150 ml 811 ml 9382 ml Output Total 450 ml 250 ml 375 ml 3800 ml Balance -350 ml -100 ml 436 ml 5582 ml Intake Oral 100 ml 100 ml 120 ml 3120 ml IV Total 50 ml 691 ml 6262 ml Output Urine Total 450 ml 250 ml 375 ml 3800 ml # Bowel Movements 1 1 2 16 Exam General: Alert and oriented, no acute distress Heart: Regular Lungs: Clear anteriorly and laterally Abdomen: Soft, non-tender Extremities: No pedal edema IVs and Medications Medications Reviewed: Medications were reviewed in detail Lab and Diagnostics Result Diagram: 10/11/1662910/11/16629 Assessment & Plan Ms. Cabrera is a pleasant 81 year old cachectic female with an unfortunate history of metastatic well-differentiated neuroendocrine carcinoma and resultant anasarca that presented to [facility] following a syncopal and unresponsive episode that followed an injection of octreotide that lasted approximately 35 minutes according to her daughter that was present throughout the event. Ms. Leiva was admitted for evaluation for her syncopal episodes. Metastatic neuroendocrine tumor: - Palliative care has consulted - Pt has transitioned to DNR/DNI, Family and patient are now interested in a transition to hospice care, first opening for home hospice is Monday - had ordered a therapeutic paracentesis for Monday, However patient is to be discharged in the morning (transport arranged for 10 AM) so she can be home by her noon appointment with home hospice so will cancel the paracentesis, especially as she does not currently seem in any discomfort from her ascites Syncope, acute, present on admission, has not recurred - Possibly due to Recent shift in fluids with recent paracentesis 09/29/2016 - UA negative; WBC 10.4; - Received Vanco and Zosyn in ED; currently appears uninfected, but may not mount appropriate fevers/white count - Orthostatic vitals canceled as are daily lab values. This condition will not be worked up further. Elevated lactic acid, likely acute, present on admission. Monitored - On admit: LA 4.1, but normalized soon after. Acute kidney injury, present on admission. Monitored - On admit: Cr 1.06; baseline 0.65-0.97 - Likely secondary to dehydration; patient reports poor po intake; pt also received vanco and zosyn in ED - Holding ACEi, - Home meds: Enalapril 10mg qam, Lasix 20mg qam, spironolactone 50mg BID - Initial IV fluids, discontinued when it appeared she was taking adequate oral liquids - Further evaluation held as will no longer redoing blood draws Suspected CXR abnormality, chronicity unknown, present on admission. Monitor - CXR 10/10: Retrocardiac atelectasis, PNA, or aspiration - Patient has poor inspiratory effort - Acapella to open smaller airways - Continuing Zosyn until discharged. Protein-calorie malnutrition with hypoalbuminemia, BMI 19, chronic. Ongoing - Patient reports minimal to zero appetite and weight loss with associated fatigue - Since transitioning to hospice will not pursue this further allow patient to eat to comfort Anasarca, chronic. Presumed stable - Patient and daughter report that swelling at time of admission is improved compared to previous days - Likely secondary to low albumin levels; - As noted above this is likely a complication of patient's metastatic process, no further intervention aside from possible therapeutic paracentesis prior to discharge on hospice care. Normocytic, normochromic anemia, likely chronic. Presumed stable - On admit: Hb 9.0, Hct 29.5 - Likely secondary to advanced age, h/o carcinoma - No longer Monitoring Hypomagnesemia, likely acute, present on admission. - On admit: Mg 1.3 - No further lab draws planned Generalized weakness and failure to thrive, chronic. Ongoing - Likely secondary to Dx carcinoma, and/orpoor po intake Disposition: Plan is for discharge home Monday morning, transport arranged for 10 AM, so that she will be home by the time home hospice comes for her intake evaluation at noon GI Prophylaxis: Not indicated VTE Prophylaxis: Sub-Q Heparin (Unfractionated) VTE Mechanical Devices: Intermittant Pneumatic CD Resuscitation Status: DNR/DNI:Do Not Resuscitate/Intubate Geno White MD Oct 16, 2016 13:23
--- NOTE | 2016-10-16 13:30 | PCM.DIMED ---
Discharge Instructions Date of Service Oct 17, 2016 Dates of Hospitalization Oct 10, 2016 at 18:21 Discharge Diagnosis Discharge Diagnosis Metastatic neuroendocrine tumor: Syncope, acute, present on admission, has not recurred Elevated lactic acid, likely acute, present on admission. Monitored Acute kidney injury, present on admission. Monitored Suspected CXR abnormality, chronicity unknown, present on admission. Monitor Protein-calorie malnutrition with hypoalbuminemia, BMI 19, chronic. Ongoing Anasarca, chronic. Presumed stable Normocytic, normochromic anemia, likely chronic. Presumed stable Hypomagnesemia, likely acute, present on admission. Generalized weakness and failure to thrive, chronic. Ongoing Diet No restrictions Activity No restrictions Patient Instructions Follow-up with PCP in: Other (as needed) Geno White MD Oct 16, 2016 13:30
[2016-10-16] MEDS ORDERED: Acetaminophen PO (13:32)
--- NOTE | 2016-10-16 13:32 | NUR ---
ACTIVITY Patient is alert and oriented X 4. Patient denies pain. Tolerating liquids PO and her diet. Denies nausea. No emesis noted. On O2 at 2 LPM via NC. Denies SOB. Turned and repositioned Q 2 hrs. Skin care and perineal care rendered. Patient has been using her call light appropriately.
[2016-10-16 20:08] VITALS: BP 125/75; PULSE 77; RESP 16; O2SAT 96
[2016-10-17] MEDS: Piperacillin-Tazo 3.375 Gm Inj 3.375 GM in Dextrose 5% Minibag Plus 50 ML IV SCH ×2 (01:03→08:04)
[2016-10-17] MEDS: Heparin 5,000 Unit/mL Inj SUBQ SCH ×2 (01:03→08:06)
[2016-10-17 05:51] VITALS: BP 92/53; PULSE 73; RESP 16; O2SAT 92
--- NOTE | 2016-10-17 06:06 | NUR ---
Activity Pt continues to deny pain or nausea. Pt is on 2L 02 via NC 92% 02 sats. Denies SOB. Mepilex placed on coccyx, toussaint care performed and pt was turned/repositioned q2 hrs overnight.
--- NOTE | 2016-10-17 08:52 | NUR ---
Social Work-discharge: Data:EMR Reviewed. Pt is on day 6 of hospitalization for syncope per H&P. Pt is medically stable for discharge. SW confirmed with Hospice that they are opening with pt today at 1200. [place] ambulance transport has been set up for 1000. SW called daughter Janis and confirmed that all DME is at home and she is aware of discharge and Hospice opening today. SW again explained SW cannot guarantee insurance will cover the cost of transport,daughter agreeable to proceed.RN,UC,pt/family, and Hospice all updated and agreeable to plan. Assessment:Pt who would benefit from Hospice. Plan:Pt to discharge home today via BLS at 1000. Hospice to open with pt at 1200. DME has been delivered. Daughter updated and agreeable to plan.RN,UC,pt/family, and Hospice all updated and agreeable to plan. MU Valente
--- NOTE | 2016-10-17 09:04 | NUR ---
Palliative care note D/A: POLST completed with pt on 10/11/16. Pt elects DNAR with comfort measures. She wishes for consider of antibiotics when infection occurs with comfort as the goal and also does not wish for medically assisted nutrition by tube. POLST is witnessed by radha Bruce who can be reached at [phone] at cell at [phone]. POLST is faxed to [facility]. P: No further need for PC services. Olya MAGALLANES, CCM
--- NOTE | 2016-10-17 09:44 | NUR ---
DISCHARGE Removed IV catheter from left arm, catheter intact. Patient signed discharge paperwork, aware of hospice intake meeting to take place later today once she gets home. Patient left with 1 bag of personal belongings and original POLST form. All other belongings were taken home yesterday by family per patient. Transferred to [facility] and left facility @ 0940.
--- NOTE | 2016-10-17 16:34 | PCM.DC.MED ---
Discharge Summary Date of Service Oct 17, 2016 Dates of Hospitalization Date of Hospital Admission Oct 10, 2016 at 18:21 Date of Discharge: Oct 17, 2016 Providers: Admitting Physician: Rita Lucio DO Primary Care Physician: Pablo David MD Attending Physician: Rita Lucio DO Diagnosis at Time of Discharge Diagnosis at Time of Discharge Metastatic neuroendocrine tumor: Syncope, acute, present on admission, has not recurred Elevated lactic acid, likely acute, present on admission. Monitored Acute kidney injury, present on admission. Monitored Suspected CXR abnormality, chronicity unknown, present on admission. Monitor Protein-calorie malnutrition with hypoalbuminemia, BMI 19, chronic. Ongoing Anasarca, chronic. Presumed stable Normocytic, normochromic anemia, likely chronic. Presumed stable Hypomagnesemia, likely acute, present on admission. Generalized weakness and failure to thrive, chronic. Ongoing Consultations 1. Palliative care consult Procedures XRay, CTs & MRIs Date of Service: 10/11/16 1415 PROCEDURE: CT CHEST, ABDOMEN AND PELVIS WTIH CONTRAST ([id number]) IMPRESSION: The dominant abnormality is a significant interval increase in the amount of ascites, now large in quantity. There also now are new bilateral moderate pleural effusions. A liver mass and left periaortic adenopathy/ retroperitoneal mass has not changed. No new soft tissue lesion is found. Generalized anasarca. Worsening cachexia. Dictated by: Prosper Velazquez M.D. on 10/11/2016 at 20:27 Approved by: Prosper Velazquez M.D. on 10/11/2016 at 20:40 ADDENDUM ADDENDUM: Clarification added to document resolution of a number of the small subtle hepatic metastatic lesions previously present in June of this year. Dictated by: Prosper Velazquez M.D. on 10/11/2016 at 20:27 Approved by: Prosper Velazquez M.D. on 10/11/2016 at 20:40 Dictated by: Prosper Velazquez M.D. on 10/12/2016 at 12:31 Approved by: Prosper Velazquez M.D. on 10/12/2016 at 12:36 Small pulmonary emboli noted in left lower lobe pulmonary arteries. Findings telephoned to Amanda Vidales nursing manager to Dr. Costa on 2016 at 0839 hours. Dictated by: Roselia Grant MD, PhD on 10/12/2016 at 8:30 Approved by: Roselia Grant MD, PhD on 10/12/2016 at 8:41 Report status: Addendum Brief History As noted in H&P by Dr. Mera: Ms. Cabrera is a pleasant 81 year old cachectic female with an unfortunate history of metastatic well-differentiated neuroendocrine carcinoma and resultant anasarca that presented to [facility] from [facility] following a syncopal and unresponsive episode that followed an injection of octreotide, that lasted approximately 35 minutes according to her daughter that was present throughout the event. Ms. Leiva was admitted on 10/10 for evaluation for her syncopal episodes. Ms. Leiva and daughter confirm that there have been three syncopal events over the recent 4 days, first occurring Monday, 10/07, following lab draw, lasting approximately 15 minutes, and occurred while the patient was at rest braced with her walker. The second episode occurred Monday, 10/08, and occurred just as the patient was assisted into a seated position into a vehicle , lasting apporx 15 minutes. During these two episodes, the patient slumped over , became unresponsive, and cannot recall details of these events. The third episode occurred day of admission, 10/10, and occurred just as the patient completed octreotide injections at the [facility]. She, again, slumped over, became unresponsive, and this episode lasted approx 35 minutes. It is reported that staff at the [facility] were unable to obtain adequate BP readings. Ms. Cabrera is followed closely by Dr. 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 She states she has been more comfortable since that procedure. She has also continued and has been compliant with her diuretics. Patient denies any history of seizures, CVA, cardiac conditions including OH and dysrhythmias, history of similar sx, pulmonary conditions, or any existing neurological disorders. Daughter and patient state that they have not considered much thought to goals of care and responses to proceeding with CPR vs DNR/DNI. Chart review indicates that patient does have history of CAD, CHF, and RA not on systemic therapies. No echocardiogram available in [facility]. Hospital Course As per last progress note by Dr. Ambrocio (please note patient was discharge trimming operator of 10/17/[address] Ambrocio day earlier before I had a chance to see her): Metastatic neuroendocrine tumor: - Palliative care has consulted - Pt has transitioned to DNR/DNI, Family and patient are now interested in a transition to hospice care, first opening for home hospice is Monday - had ordered a therapeutic paracentesis for Monday, However patient is to be discharged in the morning so she can be home by her noon appointment with home hospice so will cancel the paracentesis, especially as she does not currently seem in any discomfort from her ascites Syncope, acute, present on admission, has not recurred - Possibly due to Recent shift in fluids with recent paracentesis 09/29/2016 - UA negative; WBC 10.4; - Received Vanco and Zosyn in ED; currently appears uninfected, but may not mount appropriate fevers/white count - Orthostatic vitals canceled as are daily lab values. This condition will not be worked up further. Elevated lactic acid, likely acute, present on admission. Monitored - On admit: LA 4.1, but normalized soon after. Acute kidney injury, present on admission. Monitored - On admit: Cr 1.06; baseline 0.65-0.97 - Likely secondary to dehydration; patient reports poor po intake; pt also received vanco and zosyn in ED - Holding ACEi, - Home meds: Enalapril 10mg qam, Lasix 20mg qam, spironolactone 50mg BID - Initial IV fluids, discontinued when it appeared she was taking adequate oral liquids - Further evaluation held as will no longer redoing blood draws Suspected CXR abnormality, chronicity unknown, present on admission. Monitor - CXR 10/10: Retrocardiac atelectasis, PNA, or aspiration - Patient has poor inspiratory effort - Acapella to open smaller airways - Continuing Zosyn until discharged. Protein-calorie malnutrition with hypoalbuminemia, BMI 19, chronic. Ongoing - Patient reports minimal to zero appetite and weight loss with associated fatigue - Since transitioning to hospice will not pursue this further allow patient to eat to comfort Anasarca, chronic. Presumed stable - Patient and daughter report that swelling at time of admission is improved compared to previous days - Likely secondary to low albumin levels; - As noted above this is likely a complication of patient's metastatic process, no further intervention aside from possible therapeutic paracentesis prior to discharge on hospice care. Normocytic, normochromic anemia, likely chronic. Presumed stable - On admit: Hb 9.0, Hct 29.5 - Likely secondary to advanced age, h/o carcinoma - No longer Monitoring Hypomagnesemia, likely acute, present on admission. - On admit: Mg 1.3 - No further lab draws planned Generalized weakness and failure to thrive, chronic. Ongoing - Likely secondary to Dx carcinoma, and/orpoor po intake Exam Vital Signs (Last) Date Time Temp Pulse Resp B/P Pulse Ox O2 Delivery O2 Flow Rate FiO2 10/17/16 08:54 Supplement Oxygen 10/17/16 05:51 36.6 73 16 92/53 92 2.00 Test 10/10/16 16:33 10/10/16 17:15 10/11/16 06:30 Procalcitonin 0.08ng/mL (0.00-0.08) Urine Color Yellow (YELLOW) Urine Appearance Clear (CLEAR,HAZY) Urine pH 5.5 (5.0-8.0) Urine Specific [place] 1.010 (1.003-1.035) Urine Protein Negativemg/dL (NEG,TRACE) Urine Glucose (UA) Negativemg/dL (NEGATIVE) Urine Ketones Negativemg/dL (NEGATIVE) Urine Occult Blood Trace (NEGATIVE) Urine Nitrite Negative (NEGATIVE) Urine Bilirubin Negative (NEGATIVE) Urine Urobilinogen Normalmg/dL (NORMAL) Urine Leukocyte Esterase Negative (NEGATIVE) Urine RBC 0-2/hpf (0-2) Urine WBC 0-5/hpf (0-5) Urine Epithelial Cells Moderate/hpf (NONE-MOD) Urine Crystals Oxalic acid crystals (NONE Urine Bacteria Few/hpf (NONE-FEW) Urine Hyaline Casts 11/12/lpf (NONE) Urine Granular Casts None seen (NONE SEEN) Urine Waxy Casts None seen (NONE SEEN) Urine Red Blood Cell Casts None seen (NONE SEEN) Urine White Blood Cell Casts None seen (NONE SEEN) Urine Mucus Present (None Seen) Urine Trichomonas None seen (NONE SEEN) Urine Yeast None (NONE SEEN) Urinalysis Comment Starch Urine Culture Reflexed Not indicated White Blood Count 8.6th/mm3 (3.8-10.1) Red Blood Count 3.18mil/mm3 (3.90-5.20) Hemoglobin 8.9g/dL (12.0-15.6) Hematocrit 28.8% (35.0-46.0) Mean Corpuscular Volume 90.6fL (81-100) Mean Corpuscular Hemoglobin 28.0pg (27.0-35.0) Mean Corpuscular Hemoglobin Concent 30.9% (32.0-37.0) Red Cell Distribution Width 18.1% (12.3-15.4) Platelet Count 315bil/L (150-400) Neutrophils (%) (Auto) 78.0% (40-74) Lymphocytes (%) (Auto) 12.8% (14-46) Monocytes (%) (Auto) 7.5% (4-12) Eosinophils (%) (Auto) 0.2% (0-5) Basophils (%) (Auto) 0.2% (0-3) Sodium Level 141mEq/L (134-144) Potassium Level 3.3mEq/L (3.5-5.2) Chloride Level 106mEq/L (97-108) Carbon Dioxide Level 20mmol/L (18-29) Blood Urea Nitrogen 20mg/dL (8-27) Creatinine 0.86mg/dL (0.57-1.00) Estimat Glomerular Filtration Rate 90mL/min (>59) Glucose Level 65mg/dL (60-99) Lactic Acid Level 1.1mmol/L (0.4-2.0) Calcium Level 7.1mg/dL (8.5-10.1) Phosphorus Level 3.0mg/dL (2.5-4.9) Magnesium Level 1.9mg/dL (1.6-2.6) Total Bilirubin 0.3mg/dL (0.0-1.2) Aspartate Amino Transf (AST/SGOT) 22U/L (0-50) Alanine Aminotransferase (ALT/SGPT) 10U/L (0-32) Alkaline Phosphatase 143U/L (25-165) Total Protein 4.2g/dL (6.4-8.4) Albumin 1.8g/dL (3.4-5.0) Thyroid Stimulating Hormone (TSH) 0.540uIU/mL (0.450-4.500) Free Thyroxine 1.00ng/dL (0.82-1.77) Discharge Medications As needed ([Acetaminophen]) 325 MG TABLET 650 MG PO Q4H PRN PRN For Pain Prescribed by: PATRIA AMBROCIO MD Hydrocodone-Acetaminophen 5-325 mg (Hydrocodone-Acetaminophen 5-325 mg) 1 Each Tablet 0.5-1 TABLET PO TID PRN PRN For Pain (Reported) Omeprazole (Omeprazole) 20 Mg Capsule.dr 20 MG PO DAILY PRN PRN For Dyspepsia or Heartburn (Reported) Ondansetron ODT (Zofran ODT) 8 Mg Tablet 8 MG PO q8hrs prn PRN PRN For Nausea ( Reported) Prochlorperazine Maleate (Compazine) 10 Mg Tablet 0.5-1 TABLET PO AC PRN PRN For Nausea (Reported) Followup Plan Disposition: Home with hospice Discharge Diet: No restrictions Discharge Activity: No restrictions Follow-up with PCP in: Other (as needed) copies to: Pablo David MD, Masoud Oct 17, 2016 16:34
== END 2016-10-17 09:42 | disposition hospice, home (50) | DRG 640 ==
LOC: EDBD 15:54 → SED 15:54 → OSC 18:21
PROVIDERS: ADMIT Internal Medicine; ATTEND Internal Medicine
DX: E83.42 Hypomagnesemia (principal); E43 Unspecified severe protein-calorie malnutrition; N17.9 Acute kidney failure, unspecified; C7A.8 Other malignant neuroendocrine tumors; Z68.1 Body mass index [BMI] 19.9 or less, adult; C78.7 Secondary malignant neoplasm of liver and intrahepatic bile duct; R62.7 Adult failure to thrive; R55 Syncope and collapse; I25.10 Atherosclerotic heart disease of native coronary artery without angina pectoris; D64.9 Anemia, unspecified; I10 Essential (primary) hypertension; Z51.5 Encounter for palliative care